=== PATIENT | male | born 1935 | race Caucasian/White ===

== ENCOUNTER 2018-02-08 12:42 | Emergency (ER) | payer OTHER ==
--- OUTSIDE RECORDS SUMMARY | 2018-02-08 12:45 | XMS REPORT | Clinical Summary ---
:1935 Author Organization [facility] Address [address] [place] [address] Care Team Providers Name Role Phone Wily Pelaez MD Primary Care Provider Allergies No Known Allergies Medications Medication Sig Dispensed Refills Start Date End Date Status irbesartan (AVAPRO) Take 150 mg by 0 Active 150 MG tablet mouth. tamsulosin (FLOMAX) Take 0.4 mg by 0 Active 0.4 mg mouth nightly. capsule,extended release 24hr temazepam (RESTORIL) Take 15 mg by 0 11/08/2014 Active 15 mg capsule mouth nightly as needed. triamterene-hydrochlo Take 1 tablet by 0 Active rothiazid mouth every (MAXZIDE-25) 37.5-25 other day. mg per tablet METOPROLOL SUCCINATE Take 100 mg by 0 Active ORAL mouth daily. levothyroxine Take 88 mcg by 0 Active (SYNTHROID, mouth every LEVOTHROID) 50 MCG morning. tablet psyllium (METAMUCIL) Take 1 packet by 0 Active 3.4 gram packet mouth daily. docusate sodium Take 100 mg by 0 Active (COLACE) 100 MG mouth daily as capsule needed. polyethylene glycol Take 17 g by 0 Active (MIRALAX) 17 gram mouth daily. packet amIODarone (PACERONE) Take 200 mg by 0 Active 200 MG tablet mouth daily. dabigatran etexilate Take 150 mg by 0 Active (PRADAXA) 150 mg mouth 2 (two) capsu times a day. traMADol (ULTRAM) 50 Take 1 tablet 30 tablet 0 04/18/2016 03/28/2017 mg tablet (50 mg total) by mouth every 6 (six) hours as needed for moderate pain for up to 30 doses. Active Problems Not on file Encounters Date Type Specialty Care Team Description 02/01/2018 Anesthesia Event Procedural Emelia Morris Cardiology Juliana, FIXED ROUTE OPERATOR 02/01/2018 Surgery Procedural Theresa Morrison Jr., EP CARDIOVERSION Cardiology [20047 (CPT)] 02/01/2018 Hospital Encounter Procedural Theresa Morrison Jr., Atrial fibrillation, Cardiology unspecified type (HCC) after 02/07/2017 Social History Tobacco Use Types Packs/Day Years Used Date Never Smoker Smokeless Tobacco: Never Used Alcohol Use Drinks/Week oz/Week Comments Yes social Sex Assigned at Date Recorded Not on file Job Start Date Occupation Industry Not on file Not on file Not on file Travel History Travel Start Travel End No recent travel history available. Last Filed Vital Signs Vital Sign Reading Time Taken Blood Pressure 176/111 02/01/2018 8:35 AM NON PROFIT FINANCIAL CONTROLLER Pulse 85 02/01/2018 8:35 AM NON PROFIT FINANCIAL CONTROLLER Temperature 36.5 C (97.7 F) 02/01/2018 8:04 AM NON PROFIT FINANCIAL CONTROLLER Respiratory Rate 18 02/01/2018 8:35 AM NON PROFIT FINANCIAL CONTROLLER Oxygen Saturation 99% 02/01/2018 8:35 AM NON PROFIT FINANCIAL CONTROLLER Inhaled Oxygen Concentration - - Weight 97.2 kg (214 lb 3.2 oz) 02/01/2018 6:26 AM NON PROFIT FINANCIAL CONTROLLER Height 185.4 cm (6' 1") 02/01/2018 6:26 AM NON PROFIT FINANCIAL CONTROLLER Body Mass Index 28.26 02/01/2018 6:26 AM NON PROFIT FINANCIAL CONTROLLER Plan of Treatment Not on file Implants Implanted Type Area Lieutenant Shift Supervisor Device Shelf Model / Identifier Expiration Serial / Date Lot Pacemaker Assurity Dual Rate Rf - [id number] - [id number] Cardiac N/A: [employer] 09/22/2017 [id number] / Implanted: Qty: 1 on 04/18/2016 by Theresa Morrison Jr., MD Pacemaker N/A INC [id number] / Generators [id number] Envelope Pcemkr Antbactl Fully Resorb Aigisrxr - [id number] Cardiac Pacing N/A: [employer] [id number] / Implanted: Qty: 1 on 04/18/2016 by Theresa Morrison Jr., MD Leads or N/A / Electrodes or Accessories Pacemaker R Hip Replacement Procedures Procedure Name Priority Date/Time Associated Diagnosis Comments ECG PRE/POST OP Routine 02/01/2018 6:06 AM Results for this NON PROFIT FINANCIAL CONTROLLER procedure are in the results section. after 02/07/2017 Results ECG Pre/Post Op (02/01/2018 6:06 AM NON PROFIT FINANCIAL CONTROLLER) Ventricular rate 78 [facility] Atrial rate 75 [facility] QRSD interval 158 [facility] QT interval 456 [facility] QTC interval 519 [facility] MUSE QRS axis 1 -72 [facility] T wave axis 102 [facility] EKG impression Ventricular-paced rhythm-Abnormal ECG-In [facility] MUSE automated comparison with ECG of -MAR-2016 06:43,-Electronic ventricular pacemaker has replaced Electronic atrial pacemaker- Narrative Performed At Performing Organization Address City/State/Zipcode Phone Number [facility] [address] [place] [address] after 02/07/2017 Insurance Payer Benefit Plan / Group Subscriber ID Type Phone Address HUMANA MEDICARE HUMANA MEDICARE PPO/PFFS/[facility] xxxxxxxxx PPO Advance Directives Patient has advance care planning documents on file. For more information, please contact:Perry [id number] [place] [address]
[2018-02-08] MEDS ORDERED: NA CHLORIDE 0.9% 1,000 ML ONE (13:36)
[2018-02-08] MEDS ORDERED: PANTOPRAZOLE 40 MG INJ ONE (13:47)
[2018-02-08 13:56] LABS: Absolute Lymphocytes (CBC) 0.7 K/uL (0.7-4.9); Absolute Monocytes 0.4 K/uL (0.1-1.3); Absolute Neutrophil 3.7 K/uL (1.8-8.0); Basophils % 0.9 % (0-1.3); Eosinophils % 1.1 % (0-4.4); Hematocrit 42.6 % (39.6-49.0); Lymphocytes % 14.7 % (15.3-44.8); MCH 35.2 pg (27.0-35.0); MCV 101.1 fL (80-100); MPV 8.3 fL (7.6-11.3); RBC Red Blood Cell Count 4.21 M/uL (4.33-5.43)
[2018-02-08 13:57] LABS: Protime INR 1.56
[2018-02-08 14:20] LABS: ALT/SGPT 30 U/L (12-78); AST/SGOT 27 U/L (15-37); Albumin 3.8 g/dL (3.4-5.0); Alkaline Phosphatase 88 U/L (45-117); BUN Blood Urea Nitrogen 12 mg/dL (7-18); Bicarbonate 28 mmol/L (21-32); Bilirubin Direct 0.6 mg/dL (0-0.2); Bilirubin Total 1.4 mg/dL (0.2-1.0); Glucose Level 94 mg/dL (74-106); Lipase 199 U/L (73-393); Magnesium 2.2 mg/dL (1.8-2.4); NT PRO-BNP 4299 pg/mL (<450); Potassium 3.2 mmol/L (3.5-5.1); Protein, Total 7.2 g/dL (6.4-8.2); Sodium Level 134 mmol/L (136-145); Troponin (Emerg Dept Use Only) < 0.02 ng/mL (0.0-0.045)
--- NOTE | 2018-02-08 14:43 | EDPHYS ---
Physician Documentation [facility] Name: Ed Delgado Age: 82 yrs Sex: Male : 1935 Arrival Date: 02/08/2018 Time: 12:44 Bed 15 Private MD: ED Physician Adair Holcomb HPI: 02/08 13:31 This 82 yrs old Male presents to ER via Wheelchair with complaints of [facility] INDIGESTION. 13:31 The patient or guardian reports chest pain that is located primarily in the anterior geovanna chest wall. Onset: 1 week(s) ago. The patient presents with diff swallowing solids. Onset: The symptoms/episode began/occurred 5 day(s) ago. The pain does not radiate. Associated signs and symptoms: Pertinent positives: dysphagia, solids. Modifying factors: The symptoms are alleviated by nothing, the symptoms are aggravated by nothing. Historical: - Allergies: 14:41 No Known Allergies; bp - Home Meds: 14:41 triamterene-hydrochlorothiazid 37.5-25 mg Oral tab 1 tab once daily [Active]; bp metoprolol succinate 100 mg oral Tb24 1 tab once daily [Active]; amiodarone 200 mg Oral tab 1 tab once daily [Active]; Pradaxa 150 mg oral cap 1 cap 2 times per day [Active]; Avapro 300 mg Oral tab 1 tab once daily [Active]; clonidine HCl 0.1 mg Oral tab 1 tab once daily [Active]; tamsulosin 0.4 mg oral cp24 1 cap once daily [Active]; levothyroxine 88 mcg tab 1 tab once daily [Active]; - PMHx: 14:41 Atrial Fib; Hypertension; bp - Immunization history:: Adult Immunizations up to date. - Social history:: Smoking status: Patient/guardian denies using tobacco. - Ebola Screening: : Patient negative for fever greater than or equal to 101.5 degrees Fahrenheit, and additional compatible Ebola Virus Disease symptoms Patient denies exposure to infectious person Patient denies travel to an Ebola-affected area in the 21 days before illness onset No symptoms or risks identified at this time. ROS: 13:31 Constitutional: Negative for fever, chills, and weight loss, Eyes: Negative for injury, geovanna pain, redness, and discharge, ENT: Negative for injury, pain, and discharge, Neck: Negative for injury, pain, and swelling, Cardiovascular: Negative for chest pain, palpitations, and edema, Respiratory: Negative for shortness of breath, cough, wheezing, and pleuritic chest pain, Back: Negative for injury and pain, : Negative for injury, bleeding, discharge, and swelling, MS/Extremity: Negative for injury and deformity, Skin: Negative for injury, rash, and discoloration, Neuro: Negative for headache, weakness, numbness, tingling, and seizure. 13:31 Abdomen/GI: Negative for abdominal pain. Exam: 13:31 Constitutional: This is a well developed, well nourished patient who is awake, alert, geovanna and in no acute distress. Head/Face: Normocephalic, atraumatic. Eyes: Pupils equal round and reactive to light, extra-ocular motions intact. Lids and lashes normal. Conjunctiva and sclera are non-icteric and not injected. Cornea within normal limits. Periorbital areas with no swelling, redness, or edema. ENT: Nares patent. No nasal discharge, no septal abnormalities noted. Tympanic membranes are normal and external auditory canals are clear. Oropharynx with no redness, swelling, or masses, exudates, or evidence of obstruction, uvula midline. Mucous membranes moist. Neck: Trachea midline, no thyromegaly or masses palpated, and no cervical lymphadenopathy. Supple, full range of motion without nuchal rigidity, or vertebral point tenderness. No Meningismus. Chest/axilla: Normal chest wall appearance and motion. Nontender with no deformity. No lesions are appreciated. Cardiovascular: Regular rate and rhythm with a normal S1 and S2. No gallops, murmurs, or rubs. Normal PMI, no JVD. No pulse deficits. Respiratory: Lungs have equal breath sounds bilaterally, clear to auscultation and percussion. No rales, rhonchi or wheezes noted. No increased work of breathing, no retractions or nasal flaring. Abdomen/GI: Soft, non-tender, with normal bowel sounds. No distension or tympany. No guarding or rebound. No evidence of tenderness throughout. Back: No spinal tenderness. No costovertebral tenderness. Full range of motion. Male : Normal genitalia with no discharge or lesions. Skin: Warm, dry with normal turgor. Normal color with no rashes, no lesions, and no evidence of cellulitis. MS/ Extremity: Pulses equal, no cyanosis. Neurovascular intact. Full, normal range of motion. Neuro: Awake and alert, GCS 15, oriented to person, place, time, and situation. Cranial nerves II-XII grossly intact. Motor strength 5/5 in all extremities. Sensory grossly intact. Cerebellar exam normal. Normal gait. Psych: Awake, alert, with orientation to person, place and time. Behavior, mood, and affect are within normal limits. Vital Signs: 13:05 BP 160 / 123; Pulse 76; Resp 18; Temp 97; Pulse Ox 99% ; Weight 95.25 kg; Height 6 ft. bp 1 in. (185.42 cm); 14:00 BP 179 / 112; Pulse 69; Resp 14; Pulse Ox 100% ; bp 15:00 BP 178 / 89; Pulse 70; Resp 16; Pulse Ox 99% ; bp 13:05 Body Mass Index 27.71 (95.25 kg, 185.42 cm) bp MDM: 12:47 Patient medically screened. [facility] 13:36 Data reviewed: vital signs, nurses notes, lab test result(s), EKG, radiologic studies, [facility] plain films. 02/08 13:16 Order name: Basic Metabolic Panel; Complete Time: 14:37 [facility] 02/08 13:16 Order name: CBC with Diff; Complete Time: 14:31 [facility] 02/08 13:16 Order name: LFT's; Complete Time: 14:37 [facility] 02/08 13:16 Order name: Magnesium; Complete Time: 14:37 [facility] 02/08 13:16 Order name: NT PRO-BNP; Complete Time: 14:37 [facility] 02/08 13:16 Order name: PT-INR; Complete Time: 14:31 [facility] 02/08 13:16 Order name: Troponin (emerg Dept Use Only); Complete Time: 14:37 [facility] 02/08 13:16 Order name: XRAY Chest (1 view) [facility] 02/08 13:16 Order name: Lipase; Complete Time: 14:37 [facility] 02/08 13:16 Order name: Urine Culture [facility] 02/08 13:16 Order name: TSH; Complete Time: 14:37 [facility] 02/08 13:38 Order name: Esophagram Only EDMN 02/08 14:23 Order name: T4 Free; Complete Time: 14:37 EDMS 02/08 13:16 Order name: EKG; Complete Time: 13:21 [facility] 02/08 13:16 Order name: Cardiac monitoring; Complete Time: 13:17 [facility] 02/08 13:16 Order name: EKG - Nurse/Tech; Complete Time: 13:48 [facility] 02/08 13:16 Order name: IV Saline Lock; Complete Time: 13:48 [facility] 02/08 13:16 Order name: Labs collected and sent; Complete Time: 13:48 [facility] 02/08 13:16 Order name: O2 Per Protocol; Complete Time: 13:17 [facility] 02/08 13:16 Order name: O2 Sat Monitoring; Complete Time: 13:17 [facility] 02/08 13:16 Order name: Urine Dipstick-Ancillary (obtain specimen); Complete Time: 13:53 [facility] 02/08 14:32 Order name: PO challenge: po juice; Complete Time: 14:43 [facility] 02/08 15:36 Order name: EKG Electrocardiogram EDMS Administered Medications: 13:47 Drug: NS 0.9% 1000 ml Route: IV; Rate: 125 ml/hr; Site: right antecubital; hj 15:40 Follow up: IV Status: Completed infusion; IV Intake: 250ml bp 13:47 Drug: ProTONIX 40 mg Route: IVP; Site: right antecubital; hj 14:59 Follow up: Response: No adverse reaction bp 15:00 Drug: Potassium Effervescent Tablet 25 mEq Route: PO; bp 15:40 Follow up: Response: No adverse reaction bp 15:10 Drug: Norvasc 10 mg Route: PO; bp 15:40 Follow up: Response: No adverse reaction bp Disposition: 02/08/18 14:42 Discharged to Home. Impression: Dysphagia - esophogeal spasms, Atrial fibrillation and flutter, Hypokalemia, Essential (primary) hypertension. - Condition is Fair. - Discharge Instructions: Atrial Fibrillation, Potassium Content of Foods, Dysphagia, Hypertension, Hypertension, [id number], How to Take Your Blood Pressure, [id number]-[id number], Atrial Fibrillation, [id number], Hypokalemia, Managing Your Hypertension. - Prescriptions for Protonix 40 mg Oral Tablet - take 1 tablet by ORAL route once daily; 30 tablet. Xanax 0.25 mg Oral Tablet - take 1 tablet by ORAL route every 12 hours As needed; 20 tablet. Norvasc 5 mg Oral Tablet - take 1 tablet by ORAL route once daily; 20 tablet. - Medication Reconciliation Form, Thank You Letter, Antibiotic Education, Prescription Opioid Use form. - Follow up: Private Physician; When: 2 - 3 days; Reason: Recheck today's complaints, Continuance of care, Re-evaluation by your physician. Follow up: Karel Bishop MD; When: Tomorrow; Reason: Recheck today's complaints, Continuance of care, Re-evaluation by your physician. Follow up: Andrew Agudelo MD; When: 2 - 3 days; Reason: Recheck today's complaints, Continuance of care, Re-evaluation by your physician. - Problem is new. - Symptoms have improved. Signatures: Dispatcher [employer] EDMS Adair Holcomb MD MD cha Joaquin, Henry, CLEMENTINE RN Stoney Youngblood RN RN bp Corrections: (The following items were deleted from the chart) 15:41 14:42 02/08/2018 14:42 Discharged to Home. Impression: Dysphagia - esophogeal spasms; bp Atrial fibrillation and flutter; Hypokalemia; Essential (primary) hypertension. Condition is Fair. Forms are Medication Reconciliation Form, Thank You Letter, Antibiotic Education, Prescription Opioid Use. Follow up: Private Physician; When: 2 - 3 days; Reason: Recheck today's complaints, Continuance of care, Re-evaluation by your physician. Follow up: Karel Bishop; When: Tomorrow; Reason: Recheck today's complaints, Continuance of care, Re-evaluation by your physician. Follow up: Andrew Agudelo; When: 2 - 3 days; Reason: Recheck today's complaints, Continuance of care, Re-evaluation by your physician. Problem is new. Symptoms have improved. geovanna
--- NOTE | 2018-02-08 14:43 | ER ---
Nurse's Notes [facility] Name: Ed Delgado Age: 82 yrs Sex: Male : 1935 Arrival Date: 02/08/2018 Time: 12:44 Bed 15 Private MD: Diagnosis: Dysphagia-esophogeal spasms;Atrial fibrillation and flutter;Hypokalemia;Essential (primary) hypertension Presentation: 02/08 12:48 Presenting complaint: Patient states: INDIGESTION FOR "AWHILE". Transition of care: bp patient was not received from another setting of care. Onset of symptoms is unknown. Risk Assessment: Do you want to hurt yourself or someone else? Patient reports no desire to harm self or others. Initial Sepsis Screen: Does the patient meet any 2 criteria? No. Patient's initial sepsis screen is negative. Does the patient have a suspected source of infection? No. Patient's initial sepsis screen is negative. Care prior to arrival: None. 12:48 Method Of Arrival: Wheelchair bp 12:48 Acuity: TAYLOR 4 bp Triage Assessment: 12:48 General: Appears in no apparent distress. comfortable, Behavior is calm, cooperative, bp appropriate for age. Pain: Denies pain. EENT: No deficits noted. Neuro: Level of Consciousness is awake, alert, obeys commands, Oriented to person, place, time, situation, Appropriate for age. Cardiovascular: Rhythm is sinus rhythm. Respiratory: Airway is patent. GI: Reports. : No signs and/or symptoms were reported regarding the genitourinary system. Historical: - Allergies: 14:41 No Known Allergies; bp - Home Meds: 14:41 triamterene-hydrochlorothiazid 37.5-25 mg Oral tab 1 tab once daily [Active]; bp metoprolol succinate 100 mg oral Tb24 1 tab once daily [Active]; amiodarone 200 mg Oral tab 1 tab once daily [Active]; Pradaxa 150 mg oral cap 1 cap 2 times per day [Active]; Avapro 300 mg Oral tab 1 tab once daily [Active]; clonidine HCl 0.1 mg Oral tab 1 tab once daily [Active]; tamsulosin 0.4 mg oral cp24 1 cap once daily [Active]; levothyroxine 88 mcg tab 1 tab once daily [Active]; - PMHx: 14:41 Atrial Fib; Hypertension; bp - Immunization history:: Adult Immunizations up to date. - Social history:: Smoking status: Patient/guardian denies using tobacco. - Ebola Screening: : Patient negative for fever greater than or equal to 101.5 degrees Fahrenheit, and additional compatible Ebola Virus Disease symptoms Patient denies exposure to infectious person Patient denies travel to an Ebola-affected area in the 21 days before illness onset No symptoms or risks identified at this time. Screenin:00 Abuse screen: Denies threats or abuse. Denies injuries from another. Nutritional bp screening: No deficits noted. Tuberculosis screening: No symptoms or risk factors identified. Fall Risk None identified. Assessment: 13:00 General: Appears in no apparent distress. comfortable, Behavior is calm, cooperative, bp appropriate for age. Pain: Complains of pain in ESOPHAGEAL. Neuro: Level of Consciousness is awake, alert, obeys commands, Oriented to person, place, time, situation, Appropriate for age. Cardiovascular: Rhythm is regular. Respiratory: Airway is patent Respiratory effort is even, unlabored, Respiratory pattern is regular, symmetrical. GI: No signs and/or symptoms were reported involving the gastrointestinal system. : No signs and/or symptoms were reported regarding the genitourinary system. EENT: No deficits noted. Derm: No deficits noted. Musculoskeletal: Circulation, motion, and sensation intact. Range of motion: intact in all extremities. 14:00 Reassessment: PT RETURNED FROM RAD, ALL CURRENT ORDERS COMPLETED. bp 15:34 Reassessment: PT D/C HOME WITH AERONAUTICAL DRAFTER, DX WITH AFIB, DYSPHAGIA AND HYPOKALEMIA. bp Vital Signs: 13:05 BP 160 / 123; Pulse 76; Resp 18; Temp 97; Pulse Ox 99% ; Weight 95.25 kg; Height 6 ft. bp 1 in. (185.42 cm); 14:00 BP 179 / 112; Pulse 69; Resp 14; Pulse Ox 100% ; bp 15:00 BP 178 / 89; Pulse 70; Resp 16; Pulse Ox 99% ; bp 13:05 Body Mass Index 27.71 (95.25 kg, 185.42 cm) bp ED Course: 12:44 Patient arrived in ED. bp 12:44 Stoney Eugene RN is Primary Nurse. bp 12:47 Adair Holcomb MD is Attending Physician. geovanna 12:49 Triage completed. bp 12:59 Splint/sling/ice applied as appropriate. Arm band placed on. bp 13:00 EKG done, by personnel and payroll technician. reviewed by Adair Holcomb MD times two. at1 13:51 X-ray completed. Portable x-ray completed in exam room. Patient tolerated procedure ls3 well. 13:53 Initial lab(s) drawn, by nv, sent to lab. Urine collected: clean catch specimen, clear. 5 Inserted saline lock: 20 gauge in right antecubital area, using aseptic technique. Blood collected. 13:53 TSH Sent. 5 13:53 Urine Culture Sent. 5 13:53 Lipase Sent. 5 13:54 Basic Metabolic Panel Sent. [facility] 13:54 CBC with Diff Sent. [facility] 13:54 LFT's Sent. [facility] 13:54 Magnesium Sent. [facility] 13:54 NT PRO-BNP Sent. [facility] 13:54 PT-INR Sent. [facility] 13:54 Troponin (emerg Dept Use Only) Sent. 5 13:55 Patient moved to radiology via wheelchair. az 14:00 Patient has correct armband on for positive identification. Placed in gown. Bed in low bp position. Call light in reach. Side rails up X2. Adult w/ patient. 14:04 XRAY Chest (1 view) In Process Unspecified. EDMS 14:22 X-ray completed. Patient tolerated procedure well. Patient moved back from radiology. az 14:23 Esophagram Only In Process Unspecified. EDMS 14:39 Karel Bishop MD is Referral Physician. geovanna 14:39 Andrew Agudelo MD is Referral Physician. geovanna 15:38 No provider procedures requiring assistance completed. IV discontinued, intact, bp bleeding controlled, No redness/swelling at site. Pressure dressing applied. Administered Medications: 13:47 Drug: NS 0.9% 1000 ml Route: IV; Rate: 125 ml/hr; Site: right antecubital; hj 15:40 Follow up: IV Status: Completed infusion; IV Intake: 250ml bp 13:47 Drug: ProTONIX 40 mg Route: IVP; Site: right antecubital; hj 14:59 Follow up: Response: No adverse reaction bp 15:00 Drug: Potassium Effervescent Tablet 25 mEq Route: PO; bp 15:40 Follow up: Response: No adverse reaction bp 15:10 Drug: Norvasc 10 mg Route: PO; bp 15:40 Follow up: Response: No adverse reaction bp Intake: 15:40 IV: 250ml; Total: 250ml. bp Outcome: 14:42 Discharge ordered by . geovanna 15:38 Discharged to home ambulatory, with friend. bp 15:38 Condition: stable 15:38 Discharge instructions given to patient, Instructed on discharge instructions, follow up and referral plans. medication usage, Demonstrated understanding of instructions, follow-up care, medications, Prescriptions given X 3. 15:41 Patient left the ED. bp Signatures: Dispatcher [employer] EDMS Adair Holcomb, Leda Pham MD, cha, capacity manager EKG Tat1 Jamel Bob RN RN Lyubov Che [facility] Stoney Eugene RN RN Radha Sharpe Lynzie ls3
[2018-02-08] MEDS ORDERED: AMLODIPINE 5 MG TAB ONE ×2 (15:10→15:15)
[2018-02-08] MEDS ORDERED: POTASSIUM 25 MEQ EFFERV TAB ONE (15:10)
--- NOTE | 2018-02-08 15:15 | RAD REPORT ---
EXAM DESCRIPTION: RAD - Chest Single View - 02/08/2018 2:02 pm CLINICAL HISTORY: Cough, chest pain COMPARISON: April 2014 TECHNIQUE: AP portable chest image was obtained 1348 hours . FINDINGS: No peripheral mass, consolidation or failure finding. Scattered fibrotic pattern is presen t. Interstitial markings are fractionally increased from 2015. This could be progressive fibrosis or a minimal interstitial edema or infiltrate. Pacemaker is in place. No pulmonary edema findings. Heart size is upper normal. Pulmonary vasculature within normal limits. No measurable pleural effusion and no pneumothorax. No acute bony abnormality seen. No acute aortic findings suspected. IMPRESSION: No mass, consolidation or significant failure/ volume overload. Interstitial markings are increased slightly from 2015. This could be progressive fibrosis or a mild interstitial edema or infiltrate.
--- NOTE | 2018-02-08 15:31 | EKG ---
Test Date: 2018-02-08 Test Time: 12:47:57 Last Remodeler Repairer: GERALD MEASUREMENT RESULTS: Intervals: Rate: 70 VA: QRSD: 148 QT: 454 QTc: 490 [place]: P: VA: QRS: -77 T: 101 INTERPRETIVE STATEMENTS: Ventricular-paced rhythm Abnormal ECG Compared to ECG 05/16/2014 17:23:41 Atrial fibrillation no longer present Electronically Signed On 02-08-18 15:30:29 DIMENSIONAL INSPECTOR by Andrew Agudelo
[2018-02-08 15:59] VITALS: TEMP 97
[2018-02-08 16:01] VITALS: BP 178/89; O2SAT 99
--- NOTE | 2018-02-08 17:33 | RAD REPORT ---
EXAM DESCRIPTION: RAD - Esophagram Only - 02/08/2018 2:48 pm CLINICAL HISTORY: Difficulty swallowing, food stuck in esophagus COMPARISON: None. FINDINGS: There were 7 cine loop acquisitions obtained. Fluoro time was 1.0 minutes. Patient showed normal bolus formation and normal initiation of swallowing. Patient has substantially diminished primary peristalsis with pronounced tertiary contractions throughout the thoracic esophagu s. This resulted in to and fro motion of the contrast column within the thoracic esophagus. Clearing of contrast was delayed due to the tertiary contractions. No intrinsic stricture or mass lesion. No diffuse esophageal spasm. No reflux was observed. No hiatal hernia. No difficulty in transit across the GE junction. IMPRESSION: Significant decrease in primary peristalsis with pronounced tertiary contractions. No intrinsic stricture or mass. No reflux, hiatal hernia or delay in transit across the GE junction.
--- NOTE | 2018-02-09 06:03 | EKG ---
Test Date: 2018-02-08 Test Time: 12:48:23 Field Placement Director: GERALD MEASUREMENT RESULTS: Intervals: Rate: 77 [place]: QRSD: 136 QT: 438 QTc: 495 [place]: P: [place]: QRS: 49 T: -68 INTERPRETIVE STATEMENTS: Atrial fibrillation with frequent ventricular-paced complexes Right bundle branch block non specific T abnormality Abnormal ECG Compared to ECG 02/08/2018 12:47:57 Right bundle-branch block now present T-wave abnormality now present The previous ECG had no conducted complexes Electronically Signed On 02-09-18 06:02:56 SWIMMER by Andrew Agudelo
== END 2018-02-08 15:41 | disposition home or self-care (01) ==
LOC: ER 12:42
DX: K22.4 Dyskinesia of esophagus (principal); E87.6 Hypokalemia; I48.91 Unspecified atrial fibrillation; I48.92 Unspecified atrial flutter; I10 Essential (primary) hypertension
CPT/HCPCS: 36415; 71045; 74220; 80048; 80076; 83690; 83735; 83880; 84439; 84443; 84484; 85025; 85610; 87086; 87088; 93005 ×2; 96361; 96374; 99284; C9113; J7030

== ENCOUNTER 2018-09-08 07:13 | Day surgery (SDC) | payer OTHER ==
[2018-09-06 15:55] LABS: Basophils % 1.4 % (0-1.3); Lymphocytes % 27.9 % (15.3-44.8); MPV 8.6 fL (7.6-11.3); Monocytes % 8.7 % (3.3-12.3); RBC Red Blood Cell Count 4.42 M/uL (4.33-5.43)
--- NOTE | 2018-09-06 16:21 | RAD REPORT ---
EXAM DESCRIPTION: RAD - Chest Pa And Lat (2 Views) - 09/06/2018 3:56 pm CLINICAL HISTORY: Preop chest, hernia repair COMPARISON: March 2018 TECHNIQUE: PA and lateral views of the chest were obtained. 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 The interstitial pattern matches comparison. No supe rimposed failure, infiltrate or mass. Pacemaker is in place. Heart size is normal and central vasculature is within normal limits. No pleural effusion or pneu mothorax seen. No acute bony finding noted. No aortic abnormality. IMPRESSION: Chronic interstitial pattern similar to March 2018. No acute finding.
[2018-09-06 16:24] LABS: Potassium 4.2 mmol/L (3.5-5.1)
--- OUTSIDE RECORDS SUMMARY | 2018-09-08 07:16 | XMS REPORT | Clinical Summary ---
:1935 Author Organization [facility] Address [address] [place] [address] Care Team Providers Name Role Phone Wily Pelaez MD Primary Care Provider Allergies No Known Allergies Medications Medication Sig Dispensed Refills Start Date End Date Status irbesartan (AVAPRO) Take 300 mg by 0 Active 150 MG tablet mouth daily. tamsulosin (FLOMAX) Take 0.4 mg by 0 Active 0.4 mg mouth nightly. capsule,extended release 24hr triamterene-hydroch Take 1 tablet 0 Active lorothiazid by mouth daily. (MAXZIDE-25) 37.5-25 mg per tablet psyllium Take 1 packet 0 Active (METAMUCIL) 3.4 by mouth daily. gram packet docusate sodium Take 100 mg by 0 Active (COLACE) 100 MG mouth daily as capsule needed. polyethylene glycol Take 17 g by 0 Active (MIRALAX) 17 gram mouth daily. packet amIODarone Take 200 mg by 0 Active (PACERONE) 200 MG mouth daily. tablet dabigatran Take 150 mg by 0 Active etexilate (PRADAXA) mouth 2 (two) 150 mg capsu times a day. ranolazine (RANEXA) Take 500 mg by 0 Active 500 MG 12 hr ER mouth 2 (two) tablet times a day. clonIDINE Take 0.1 mg by 0 Active (CATAPRES) 0.1 MG mouth daily. tablet potassium chloride Take 20 mEq by 0 Active (K-DUR) 20 MEQ CR mouth daily. tablet levothyroxine Take 88 mcg by 0 Active (SYNTHROID, mouth every LEVOXYL) 88 mcg morning. tablet ALPRAZolam (XANAX) Take 0.25 mg by 0 Active 0.25 MG tablet mouth daily. QUEtiapine Take 25 mg by 0 Active (SEROquel) 25 MG mouth nightly tablet as needed. dextran Administer 1 15 mL 0 05/08/2018 Active 70-hypromellose drop to both (ARTIFICIAL TEARS) eyes 3 (three) 0.1-0.3 % drops times a day as needed (Eye dryness/irritat ion). colchicine 0.6 mg Take 0.5 30 tablet 0 05/08/2018 Active tablet tablets (0.3 mg 0 total) by mouth 2 (two) times a day. pantoprazole Take 1 tablet 60 tablet 0 05/08/2018 Active (PROTONIX) 40 MG EC (40 mg total) tablet by mouth 2 (two) times a day. temazepam Take 15 mg by 0 11/08/2014 Discontinued (RESTORIL) 15 mg mouth nightly 9 capsule as needed. METOPROLOL Take 100 mg by 0 Discontinued SUCCINATE ORAL mouth daily. 9 levothyroxine Take 88 mcg by 0 Discontinued (SYNTHROID, mouth every 9 LEVOTHROID) 50 MCG morning. tablet metoprolol Take 100 mg by 0 Discontinued succinate XL mouth daily. 9 (TOPROL-XL) 100 mg 24 hr tablet sucralfate Take 1 tablet 120 tablet 0 05/08/2018 (CARAFATE) 1 gram (1 g total) by 9 tablet mouth 4 (four) times a day for 30 days. metoprolol Take 1 tablet 30 tablet 0 05/09/2018 succinate XL (25 mg total) 9 (TOPROL-XL) 25 mg by mouth daily 24 hr tablet for 30 days. Active Problems Problem Noted Date Persistent atrial fibrillation 05/07/2018 Encounters Date Type Specialty Care Team Description 05/07/2018 Anesthesia Event Procedural Gonsales, Cardiology Delisa Enrique MD 05/07/2018 Surgery Procedural Surjit Geller MD EP COMPLETE EP STUDY Cardiology W ABLATION PULMONARY VEIN [63432 (CPT)] 05/07/2018 - Hospital Encounter Cardiology Surjit Geller MD Persistent atrial 05/08/2018 fibrillation ([facility]) 03/05/2018 Hospital Encounter Procedural Valeriy Gimenez PAF (paroxysmal Cardiology MD Paresh atrial fibrillation) ([facility]) 03/05/2018 Surgery Procedural RamiValeriy EP CARDIOVERSION Cardiology MD Paresh [04550 (CPT)] 02/01/2018 Anesthesia Event Procedural Emelia Morris Cardiology RANDAL Andrews 02/01/2018 Surgery Procedural Theresa Morrison Jr., EP CARDIOVERSION Cardiology [65097 (CPT)] 02/01/2018 Hospital Encounter Procedural Theresa Morrison Jr., Atrial fibrillation, Cardiology unspecified type (HCC) after 09/07/2017 Social History Tobacco Use Types Packs/Day Years [...] Vital Sign Reading Time Taken Blood Pressure 120/70 05/08/2018 8:00 AM CDT Pulse 101 05/08/2018 8:00 AM CDT Temperature 36.6 C (97.8 F) 05/08/2018 7:00 AM CDT Respiratory Rate 18 05/08/2018 7:15 AM CDT Oxygen Saturation 99% 05/08/2018 7:15 AM CDT Inhaled Oxygen Concentration - - Weight 87.2 kg (192 lb 4.8 oz) 05/08/2018 6:37 AM CDT Height 185.4 cm (6' 1") 05/07/2018 9:45 PM CDT Body Mass Index 25.37 05/07/2018 9:45 PM CDT Plan of Treatment Not on file Implants Implanted Type Area Percussion Instrument Tuner Device Shelf Model / Identifier Expiration Serial / Date Lot Pacemaker Assurity Dual Rate Rf - [id number] - [id number] Cardiac N/A: [employer] 09/22/2017 [id number] / Implanted: Qty: 1 on 04/18/2016 by Theresa Morrison Jr., MD Pacemaker N/A INC [id number] / Generators [id number] Envelope Pcemkr Antbactl Fully Resorb Aigisrxr - [id number] Cardiac Pacing N/A: [employer] [id number] / Implanted: Qty: 1 on 04/18/2016 by Theresa Morrison Jr., MD Leads or N/A / Electrodes or Accessories System Clsr Sut Meditd 6fr Perclose Proglide - [id number] Surgical N/A: [employer] 08/23/2019 [id number] / Implanted: 05/07/2018 (Quantity not on file) Implants; N/A DEVICES / Expanders; [id number] Extenders; Surgical Wires Pacemaker R Hip Replacement Procedures Procedure Name Priority Date/Time Associated Diagnosis Comments ESTIMATED GFR Routine 05/08/2018 1:14 Results for this AM CDT procedure are in the results section. BASIC METABOLIC Routine 05/08/2018 1:14 Results for this PANEL AM CDT procedure are in the results section. HC COMPLETE BLD Routine 05/08/2018 1:14 Results for this COUNT W/AUTO DIFF AM CDT procedure are in the results section. ECG PRE/POST OP Routine 05/08/2018 1:09 Results for this AM CDT procedure are in the results section. EP COMPLETE EP Routine 05/07/2018 7:00 Persistent atrial Results for this STUDY W ABLATION PM CDT fibrillation (HCC) procedure are in PULMONARY VEIN the results section. ACTIVATED CLOTTING Routine 05/07/2018 3:19 Results for this TIME PM CDT procedure are in the results section. ARTERIAL LINE Routine 05/07/2018 2:54 PM CDT Procedure Note - Marco Hernandez CRNA - 05/07/2018 2:54 PM CDT Arterial line Performed by: Marco Hernandez CRNA Authorized by: Delisa Gonsales MD Patient Location: OR Staff: Anesthesiologist: Delisa Gonsales MD Resident/RANDAL/AA: Marco Hernandez CRNA Performed by: Resident/MOBILE HOME MECHANIC/AA Pre-procedure: patient identified, IV checked, site and side verified, risks and benefits discussed, procedure verified, surgical consent complete, patient position confirmed, monitors and equipment checked and pre-op evaluation complete MSBT: antiseptic used, all elements of maximal sterile barrier technique followed, hand hygiene performed, cap/gown used by other personnel and solutions labeled Indications: Indications: multiple ABGs and hemodynamic monitoring Anesthesia: Anesthesia: General Procedure Details: Arterial Line placement: Placed post induction Line placement site: Radial Line placement side: Right Arterial line gauge: 20 G Number of attempts: 2 Ultrasound guidance used: Yes Post-procedure: Post-procedure: Sterile dressing applied Post procedure circulation, sensation, movement: Normal and unchanged Patient tolerance: Patient tolerated the procedure well with no immediate complications OK AN ELECTIVE ENDOTRACHEAL AIRWAY Routine 05/07/2018 2:54 PM CDT Procedure Note - Delisa Gonsales MD - 05/07/2018 2:54 PM CDT Airway Performed by: Marco Hernandez CRNA Authorized by: Delisa Gonsales MD Location: OR Urgency: Elective Difficult Airway: No Anesthesiologist: Delisa Gonsales MD Resident/MOBILE HOME MECHANIC/AA: Marco Hernandez CRNA Performed by: resident/MOBILE HOME MECHANIC Preoxygenated with 100% O2: Yes C-spine Precautions Maintained Throughout: No Mask Ventilation: Easy mask Final Airway Type: Endotracheal airway Final Endotracheal Airway: ETT Cuffed: Yes Technique Used: Direct laryngoscopy Insertion Site: Oral Blade Type: Lawrence Laryngoscope Blade/Videolaryngoscope Blade Size: 2 ETT Size (mm): 8.0 Cuff at minimum occlusion pressure: Yes Measured from: Lips ETT to Lips (cm): 22 Placement Verified by: CO2 detection, direct visualization and equal breath sounds Laryngoscopic view: Grade I - full view of glottis Rapid Sequence Induction (RSI): No Modified RSI: No Number of Attempts at Approach: 1 Atraumatic; no injury to lips, teeth, or oropharynx. POC PANEL Routine 05/07/2018 9:10 AM Results for this CDT procedure are in the results section. ESTIMATED GFR Routine 05/07/2018 9:10 AM Results for this CDT procedure are in the results section. TYPE AND SCREEN STAT 05/07/2018 8:58 AM Results for this CDT procedure are in the results section. EP CARDIOVERSION Routine 03/05/2018 11:26 AM PAF (paroxysmal Results for this RN PLASTIC SURGERY atrial fibrillation) procedure are in (HCC) the results section. ECG 12-LEAD Routine 03/05/2018 11:11 AM Results for this RN PLASTIC SURGERY procedure are in the results section. ECG PRE/POST OP STAT 03/05/2018 10:11 AM Results for this RN PLASTIC SURGERY procedure are in the results section. EP CARDIOVERSION Routine 02/01/2018 7:58 AM Atrial fibrillation, Results for this RN PLASTIC SURGERY unspecified type procedure are in (HCC) the results section. ECG PRE/POST OP Routine 02/01/2018 6:06 AM Results for this RN PLASTIC SURGERY procedure are in the results section. after 09/07/2017 Results Estimated GFR (05/08/2018 1:14 AM CDT)Only the most recent of2 resultswithin the time period is included. Estimated GFR 53 (A) mL/min/1.73 [facility] Comment: m2 HOSPITAL CatergoryUnitsInterpretation G1 >=90 Normal or high G2 60-89Mildly decreased [id number] to moderately decreased [id number] to severely decreased G4 15-29Severely decreased G5 <15Kidney failure The eGFR was calculated using the Chronic Kidney Disease Epidemiology Collaboration (CKD-EPI) equation. Interpretation is based on recommendations of the National Kidney Foundation-Kidney Disease Outcomes Quality Initiative (NKF-KDOQI) published in 2014. Specimen Plasma specimen Performing Organization Address City/State/Zipcode Phone Number [facility] DEPARTMENT OF PATHOLOGY AND [address] [place] [address] GENOMIC MEDIC[address] [address] CBC with platelet and differential (05/08/2018 1:14 AM CDT) Pathologist [facility] WBC 4.76 4.50 - 11.00 [facility] k/uL [facility] RBC 3.86 (L) 4.40 - 6.00 [facility] m/uL [facility] HGB 13.0 (L) 14.0 - 18.0 [facility] g/dL [facility] HCT 38.7 (L) 41.0 - 51.0 % [facility] MCV 100.3 (H) 82.0 - 100.0 [facility] MCH 33.7 27.0 - 34.0 pg [facility] MCHC 33.6 31.0 - 37.0 [facility] g/dL [facility] RDW - SD 61.2 (H) 37.0 - 55.0 fL [facility] MPV 9.9 8.8 - 13.2 fL [facility] Platelet count 109 (L) 150 - 400 k/uL [facility] Nucleated RBC 0.00 /100 WBC [facility] Neutrophils 79.3 (H) 39.0 - 69.0 % [facility] Lymphocytes 10.7 (L) 25.0 - 45.0 % [facility] Monocytes 8.4 0.0 - 10.0 % [facility] Eosinophils 0.6 0.0 - 5.0 % [facility] Basophils 0.6 0.0 - 1.0 % [facility] Immature granulocytes 0.4Comment: 0.0 - 1.0 % [facility] "Immature [facility] granulocytes" (promyelocytes , myelocytes, metamyelocytes ) Specimen Blood Performing Organization Address City/State/Zipcode Phone Number [facility] DEPARTMENT OF PATHOLOGY AND [address] [place], [place] [id number] [place] [phone] Basic metabolic panel (05/08/2018 1:14 AM CDT) Pathologist [facility] Sodium 136 135 - 148 mEq/L [facility] Potassium 3.9 3.5 - 5.0 mEq/L [facility] Chloride 101 98 - 112 mEq/L [facility] CO2 22 (L) 24 - 31 mEq/L [facility] Anion gap 13@ANIO 7 - 15 mEq/L [facility] BUN 15 8 - 23 mg/dL [facility] Creatinine 1.25 (H) 0.70 - 1.20 mg/dL [facility] Glucose 115 (H) 65 - 99 mg/dL [facility] Calcium 8.4 (L) 8.8 - 10.2 mg/dL [facility] Specimen Plasma specimen Performing Organization Address City/[facility] Phone Number [facility] DEPARTMENT OF PATHOLOGY AND [address] [place] [phone] ECG Pre/Post Op (05/08/2018 1:09 AM CDT)Only the most recent of3 resultswithin the time period is included. Ventricular rate 74 [facility] MUSE Atrial rate 43 [facility] MUSE QRSD interval 116 [facility] MUSE QT interval 422 [facility] QTC interval 468 [facility] MUSE QRS axis 1 -78 [facility] MUSE T wave axis 113 [facility] MUSE EKG impression Electronic ventricular [facility] MUSE pacemaker-In automated comparison with ECG of 05-MAR-2018 11:11,-Vent. rate has increased BY 3 BPM- Specimen Narrative Performed At Performing Organization Address City/State/Zipcode Phone Number [facility] [address] [place] [address] Cv electrophysiology procedure (05/07/2018 7:00 PM CDT) Specimen Impressions Performed At -Chronically isolated right superior vein right inferior vein [facility] -Chronically reconnected left superior vein and left inferior vein at the level of posterior joanna status post successful reisolation -Successful PWI re-isolation -Multiple areas of low voltage seen in the posterior wall, and anterior wall and to the right atrium -Multiple flutters induced, mapped and ablated from: the base of the appendage, fossa ovalis and noncoronary cusp. -CTI line ablation with bidirectional block achieved RECOMMENDATIONS: 1. Monitor on telemetry overnight 2. Bedrest for 4 hours after sheaths removal 3. Restart Pradaxa tonight 4. Continue amiodarone 5- Lasix 20 mg IV when patient in recovery Narrative Performed At DATE OF OPERATION: 05/07/2018 SYN[facility] KOSHER SEALER: Surjit Geller MD PREOPERATIVE DIAGNOSES: -Persistent atrial fibrillation, s/p prior ablation in 2014 -SSS s/p DC PCM ([facility]) -Hypertension -CKD stage II POSTOPERATIVE DIAGNOSES: -Persistent atrial fibrillation, s/p prior ablation in 2014 -Multiple tachycardias induced -SSS s/p DC PCM ([facility]) -Hypertension -CKD stage II PROCEDURES PERFORMED: -Ultrasound guided vascular access -Afib ablation with PVI -Extrapulmonary ablation for PWI -Atrial flutters ablation x4 -3D mapping -Stimulation after drug infusion -Intra cardiac echocardiography (ICE) COMPLICATIONS: None ESTIMATED BLOOD LOSS: <30cc HISTORY OF PRESENT ILLNESS: In brief, this is an 82 years old Male with past medical history as above, with symptomatic persistent atrial fibrillation refractory to anti-arrhythmics (amiodarone) who presents today for atrial fibrillation ablation.He had a prior ablation in 2015 with pulmonary vein isolation and posterior wall isolation performed. PROCEDURE IN DETAIL: Consent was obtained from the patient after a full explanation of the risks and benefits of the procedure. The patient was brought to the electrophysiology lab in the fasting state. The patient was prepared and draped in a sterile fashion. General anesthesia with intratracheal ventilation administered by the anesthesia service was used for the procedure. Esophageal temperature monitoring was performed throughout the case using CIRCA catheter. Patient presented to the EP lab in atrially paced rhythm.Pacemaker was interrogated at the beginning at the end of the case.Sheaths were placed using modified Seldinger technique. Three venous sheaths (8Fr, long 7Fr and long 9Fr sheath) were placed in the right femoral vein using ultrasound guidance without complication.A intracardiac echocardiography catheter (ICE) was inserted via the 9Fr sheath and advanced into the right atrium and the right ventricle. At baseline, there was no pericardial effusion and normal EF. There was no left atrial appendage clot seen. Using SOUND, the CTI, CS os, fossa, LPVs, RPVs were marked. The left atrium was noted to be severely enlarged and measured at 6.0m. The ICE catheter was later used to guide transseptal puncture and monitor for procedure complications. Next, the RFV 8Fr sheath was upgraded to a large curl Agilis sheath, through which a Graphite SoftwareTouch SF catheter, DF curve was advanced to the RA, and a Fast Anatomic Map (FAM) was done for the IVC, RA septum, fossa and SVC. A decapolar diagnostic catheter was then advanced into the coronary sinus.We turned out attention to left sided access. After titrating heparin drip to achieve an ACT > 350 sec, transseptal puncture was performed with Casmalia long needle (requiring RF) using ICE guidance.It was somehow challenging advancing the sheath into the left atrium and a Julian wire was used. Left (18 mmHg) atrial pressure was measured to assess intracardiac filling pressures.There were no complications.Following transseptal puncture, Agilis sheath was advanced into the LA, and the ablator was then exchanged to a DF Pentarray catheter.Patient was cardioverted with 200 J x1 to normal sinus rhythm. A detailed 3D electroanatomical and voltage map was created while in sinus rhythm in the left atrium using CARTO mapping system.The left superior and inferior veins were noted to be connected at the level of posterior joanna.The posterior wall had areas of low voltage and very slow conduction areas zone and tagged.The right pulmonary veins were isolated at baseline.Following this we proceeded with left-sided pulmonary vein re-isolation.During ablation on the posterior wall and the patient went into stable tachycardia that we will call tachycardia 1: This was distal to proximal on the CS, with tachycardia cycle length of 340 ms.Using entrainment techniques and activation mapping this was turned out to be micro-reentry tachycardia from the base of the appendage, and ablation there is slowed the tachycardia and then terminated it.We proceeded next to finishing isolating the left pulmonary veins; In addition, a roofline and a floor line were placed on the posterior wall to reachieve isolation. Additional lesions were needed in the middle to achieve isolation and exit block was obtained with high output pacing.All areas of slow conduction and low voltage were targeted as well.30-40 W for 30 sec and impedance drop of 10-15 ohms was targeted in the anterior sites. Posterior siteshigh power, short duration lesions (40W for 5-6 secs) were used. Exit and entrance block was confirmed at all 4 veins and posterior wall with high output pacing.With Isuprel infusion up to 20mcg/min, no vein reconnection and non-PV trigger was seen.CS burst pacing from 250ms to 200msec during isuprel washout, atrial tachycardia 2 was induced:This was proximal to distal on the CS, with tachycardia cycle length of 300 ms. Based on entrainment maneuvers from CS proximal CS distal, this tachycardia was thought to be right-sided.Sheath was withdrawn into the right atrium, and we attempted to map the tachycardia with Penta array, however flutter was changing into another stable flutterwhich we will call atrial tachycardia 3: This was also proximal to distal on the CS was tachycardia cycle length of 360 ms.Initially we thought this may be CTI dependent therefore CTI line was performed; however when the tachycardia was not affected with CTI line ablation we mapped it with Penta array and a focal early focus was found on the fossa on the right septum and the fossa area and ablation there immediately terminated flutter 3 into flutter 2 which was now the most predominant flutter again.Flutter 2 was mapped extensively and right atrium and left atrium: There was sensory through activation with earliest activation was broad on the right septal area.Ablation there slowed the tachycardia however were not able to terminated.At this time we decided to go retrograde to evaluate the noncoronary cusp.After obtainingright femoral arterial access with ultrasound, the ablation catheter was advanced in a retrograde fashion into the aorta to the noncoronary cusp exactly opposite to the area of early activation on the right septum.Ablation there immediately terminated the tachycardia within few seconds.Additional lesions were placed for consolidation.At this time and because of the procedure was long and the time was late into the day, procedure was ended.CTI was confirmed to be blocked with bidirectional block.Trans-conduction time was 280 ms. At this time case was ended. HV interval was measured at 66msec and GV=[id number]. Post-procedure ICE showed no pericardial effusion.At this time, GA was stopped and patient was extubated; No immediate complications. Protamine was given at the end of the procedure.Sheaths were pulled in the lab and patient was transferred to the PACU in a stable condition. Performing Organization Address [facility] Phone Number [facility] [address] [place] [phone] Activated clotting time (05/07/2018 3:19 PM CDT) Pathologist [facility] Activated clotting 468 (H) 96 - 152 sec [facility] Comment: HOSPITAL Meter ID: [id number] Site Superintendent: Dru Hercules Specimen Performing Organization Address [facility] Phone Number [facility] DEPARTMENT OF PATHOLOGY AND [address] [place] [phone] POC panel (05/07/2018 9:10 AM CDT) Pathologist [facility] POC sodium 138 135 - 148 [facility] mmol/L [facility] POC potassium 4.2 3.5 - 5.0 [facility] mmol/L [facility] POC chloride 104 99 - 109 [facility] mmol/L [facility] POC CO2 25 24 - 31 mmol/L [facility] POC glucose 85 65 - 99 mg/dL [facility] POC BUN 19 8 - 24 mg/dL [facility] POC creatinine 1.2 0.7 - 1.2 [facility] mg/dl [facility] POC hematocrit 47 41 - 51 % [facility] POC anion gap 13 8 - 20 mmol/L [facility] Comment: HOSPITAL Meter ID: [id number] Site Superintendent: Ramone Kaiser Specimen Performing Organization Address [facility] Phone Number [facility] DEPARTMENT OF PATHOLOGY AND [address] [place] [address] Type and screen (05/07/2018 8:58 AM CDT) ABO grouping O [facility] Rh type POS [facility] Antibody screen (gel) NEG [facility] Specimen Blood Performing Organization Address [facility] Phone Number [facility] DEPARTMENT OF PATHOLOGY AND [address] [place] [phone] GENOMIC MEDICINE [facility] [address] [place] [address] Cv electrophysiology procedure (03/05/2018 11:26 AM RN PLASTIC SURGERY) Specimen Narrative Performed At KOSHER SEALER: YARELY Gimenez MD COMPLICATIONS: None. ESTIMATED BLOOD LOSS: Zero. SPECIMEN REMOVED: None. PROCEDURE PERFORMED: Electrical cardioversion. PREOPERATIVE DIAGNOSIS: Persistent atrial fibrillation. POSTOPERATIVE DIAGNOSIS: Persistent atrial fibrillation. HISTORY OF PRESENT ILLNESS: The patient is an 82-year-old gentleman with a history of persistent atrial fibrillation, status post remote pulmonary vein ablation who has had recurrent atrial arrhythmias that failed to chemically convert on antiarrhythmic drug therapy and is now referred for electrical cardioversion.The patient has been on consistent anticoagulation with Pradaxa.He has a dual chamber pacemaker in place. PROCEDURE IN DETAIL: The patient was brought to the procedure room in a fasting state. Informed consent was obtained.The patient was given etomidate 7 mg.Transient deep sedation was induced.A single synchronized 360 joule biphasic shock was delivered with successful conversion to sinus rhythm. CONCLUSION: Successful electrocardioversion of atrial fibrillation to sinus rhythm. RECOMMENDATIONS: The patient will complete the appropriate postprocedure wound care and activity restriction. Performing Organization Address [facility] Phone Number [facility] [address] [place] [address] ECG 12 lead (03/05/2018 11:11 AM RN PLASTIC SURGERY) Ventricular rate 71 [facility] MUSE Atrial rate 71 [facility] MUSE OK interval 228 [facility] MUSE QRSD interval 154 [facility] MUSE QT interval 448 [facility] MUSE QTC interval 486 [facility] MUSE P axis 1 87 [facility] MUSE QRS axis 1 -75 [facility] MUSE T wave axis 104 [facility] MUSE EKG impression AV dual-paced rhythm-In [facility] MUSE automated comparison with ECG of 05-MAR-2018 11:10,-No significant change was found-- Specimen Narrative Performed At Performing Organization Address [facility] Phone Number [facility] MUSE [address] [place] [address] Cv electrophysiology procedure (02/01/2018 7:58 AM RN PLASTIC SURGERY) Specimen Narrative Performed At Theresa Raza Jr., MD Physician Electrophysiology Brief Op Note Signed Date of Service:02/01/2018 7:38 AM Procedure: EP CARDIOVERSION Case Time: 02/01/2018 7:38 AM Surgeon: Theresa Morrison Jr., MD Signed []Hide copied text []Hover for details Cardioversion Operative Note Ed Delgado,[id number] y.o. male 02/01/2018; [facility] WT CATH AOD PROC 2 Procedure(s): EP CARDIOVERSION Tolerated procedure well Condition: stable Complications:None; patient tolerated the procedure well. Findings: The patient was identified and consent reconfirmed prior to the procedure The baseline rhythm was atrial fibrillation Anesthesia was given When the patient was adequately sedated, synchronized DC CVN wasperformed converting the patient to sinus The patient awoke without sequelae Procedure Details Pre-op Diagnosis: * No pre-op diagnosis entered * Post-Op Diagnosis Codes: * Atrial fibrillation, unspecified type (HCC) [I48.91] Surgeon(s) and Role: * Theresa Morrison Jr., MD - Primary Anesthesia: Anesthesia type not filed in the log. Blood Products Administered:none Estimated Blood Loss: * No values recorded between 02/01/20187:38 AM and 02/01/20187:58 AM * Sheath/IV: Specimens: * No specimens in log * Grafts/Implants: None Conclusions:Successful Cardioversion Recommendations:Continue current meds and consider re-do PVI Theresa Morrison Jr., MD Date: 02/01/2018Time: 7:59 AM Performing Organization Address City/State/Zipcode Phone Number [facility] [address] [place] [address] after 09/07/2017 Insurance Payer Benefit Plan / Subscriber ID Effective Dates Phone Address Type Group HU[employer]NA MEDICARE HUMANA MEDICARE xxxxxxxxx 2012-Present PPO PPO/PFFS/ERS [facility] Advance Directives Patient has advance care planning documents on file. For more information, please contact:Perry [id number] [place] [address]
[2018-09-08] MEDS ORDERED: Ringers Lactate 1,000 ML IV ONE (07:54)
[2018-09-08] MEDS ORDERED: LABETALOL HCL 100 MG/20 ML ONE (08:12)
[2018-09-08] MEDS ORDERED: CEFAZOLIN/SWI 1gm 1 GM/10 ML SYR ONE (08:13)
[2018-09-08] MEDS ORDERED: dexAMETHasone 10 MG/ML VIAL ONE (08:29)
[2018-09-08] MEDS ORDERED: LIDOCAINE 2% MPF 5 ML VIAL ONE (08:29)
[2018-09-08] MEDS ORDERED: PROPOFOL 200 MG/20 ML VIAL IV ONE (08:29)
[2018-09-08] MEDS ORDERED: FENTANYL CITR 100 MCG/2 ML ONE (08:29)
[2018-09-08] MEDS ORDERED: ROCURONIUM 50 MG/5 ML VIAL IV ONE (08:31)
[2018-09-08] MEDS ORDERED: KETOROLAC 30 MG/ML INJ ONE (09:37)
[2018-09-08] MEDS ORDERED: GLYCOPYRROLATE 0.2 MG/ML SYR ONE (09:48)
[2018-09-08] MEDS ORDERED: NEOSTIGMINE 1 MG/ML -10 ML VIAL ONE (09:48)
[2018-09-08] MEDS: MORPHINE 4 MG/ML SYR ONE ×2 (09:52→10:00)
--- NOTE | 2018-09-08 09:59 | P.BOP ---
Preoperative diagnosis: Tender left inguinal hernia Postoperative diagnosis: same Primary procedure: Open repair of tender left inguinal henia with mesh Fur Trimmer: DAVID HERMAN (AGRICULTURIST) Estimated blood loss: <10cc Specimen: hernia sac Findings: as above Anesthesia: General Transferred to: Recovery Room Condition: Good
[2018-09-08] MEDS ORDERED: ONDANSETRON HCL 40 MG/20 ML VIAL ONE (10:07)
[2018-09-08 14:09] VITALS: TEMP 97; O2SAT 99
[2018-09-08 14:11] VITALS: BP 185/108
--- NOTE | 2018-09-10 02:24 | OP ---
Date of Procedure: 09/08/2018 Surgeon: Jamel Quigley MD Parimutuel Ticket Seller: SORAIDA hSaw. Preoperative Diagnosis: Tender left inguinal hernia. Postoperative Diagnosis: Tender left inguinal hernia. Procedures: Open repair of tender left inguinal hernia with mesh. Specimen: Hernia sac. Anesthesia: General plus local. Indications: This is the case of a male, who comes to us with a tender left inguinal hernia. The be nefits, alternatives, and risks of repair were fully explained to the patient, which included, but no t limited to infection, bleeding, damage to adjacent structures, anesthesia complication, chronic num bness, chronic pain, testicular damage, AR, even . He also understands this might not relieve a ny symptoms. He might need more than one surgical intervention. He was explained also where the int ention to use mesh in that area, the pros and cons of it, and he was allowed to ask questions and ans wered to his satisfaction. At the end, he did allow me to use mesh. The area of concern was marked by me and the patient in the holding room. Description Of Procedure: Patient was brought to the operating room, placed in supine position. Ane sthesia was done without complication. A time-out was called. The abdominal area and inguinal regio n were prepped and draped in a sterile fashion. Local anesthetic was applied followed by sharp incis ion of the skin. Rachele fascia was opened. External oblique aponeurosis was opened in the direction of the fibers to connect to the superficial inguinal ring. Ilioinguinal nerve, iliohypogastric nerv e were protected behind the external oblique aponeurosis. Ralph was placed around the spermatic co rd. Cremasteric fibers were carefully opened. We find a hernia sac present that was twisted and sut ure ligated with Prolene. A mesh plug was placed over the area and secured with VersaTack. Then, th e mesh sheet was placed securing that to the pubic tubercle, shelving edge of inguinal ligament, malik sversalis fascia, and the tail looped around the spermatic cord without strangulation. Ilioinguinal nerve, iliohypogastric nerve were brought back into the inguinal canal. Hemostasis was obtained. At that moment, we proceeded to reconstruct the superficial inguinal ring and then closed the external oblique aponeurosis using #2 nylon making sure the nerves were not included in the suture line. Scar pa fascia with 3-0 chromic and the skin was approximated with 4-0 PDS. Patient tolerated the procedu re well. At the end of the case, the testicles were in the scrotum. Patient was sent to the [facility] in stable condition. Disposition: Home. Followup: Tolerated. No heavy lifting. Followup: In my office in 1 week. Call for appointment [phone]. Keep area dry for 48 hours, then may shower. Keep the Steri-Strips intact. Medications: See orders. YARELY/HARDIK Voice ID: [id number] Report ID: [id number]
== END 2018-09-08 12:04 | disposition home or self-care (01) ==
LOC: OR 07:13
PROVIDERS: ATTEND Surgery
PROC: 0YU60JZ Supplement Left Inguinal Region with Synthetic Substitute, Open Approach (ICD-10-PCS; principal; 2018-09-08 09:15)
DX: K40.90 Unilateral inguinal hernia, without obstruction or gangrene, not specified as recurrent (principal); I11.9 Hypertensive heart disease without heart failure; I48.1 Persistent atrial fibrillation; I45.10 Unspecified right bundle-branch block; E78.5 Hyperlipidemia, unspecified; I25.10 Atherosclerotic heart disease of native coronary artery without angina pectoris; Z79.82 Long term (current) use of aspirin; Z79.01 Long term (current) use of anticoagulants; Z79.899 Other long term (current) drug therapy; Z85.46 Personal history of malignant neoplasm of prostate; Z95.0 Presence of cardiac pacemaker; Z95.5 Presence of coronary angioplasty implant and graft
CPT/HCPCS: 49505; 85025; 80048; 36415; 88302; 71046; J2704; J2710; J3010; J1100; J0690; J2405

== ENCOUNTER 2023-02-20 11:19 | Inpatient (IN) | payer OTHER ==
[2023-02-20] MEDS ORDERED: NA CHLORIDE 0.9% 100 ML ONE (12:01)
[2023-02-20] MEDS ORDERED: PIPERACIL/TAZO 3.375 GM VIAL IV ONE (12:02)
[2023-02-20 12:11] LABS: Absolute Lymphocytes (CBC) 0.8 K/uL (0.7-4.9); Hematocrit 37.4 % (39.6-49.0); Lymphocytes % 14.3 % (15.3-44.8); MCV 102.1 fL (80-100); MPV 7.3 fL (7.6-11.3); Platelets 155 thou/uL (152-406); RBC Red Blood Cell Count 3.66 M/uL (4.33-5.43)
[2023-02-20] MEDS ORDERED: VANCOMYCIN 1.5 GM in NA CHLORIDE 0.9% 500 ML IVPB ONE (12:15)
--- NOTE | 2023-02-20 12:15 | RAD REPORT ---
EXAM DESCRIPTION: RAD - Foot Right 3 View - 02/20/2023 11:47 am CLINICAL HISTORY: PAIN COMPARISON: No comparisons FINDINGS: Soft tissue swelling is seen affecting the mid and forefoot. Moderate vascular atheroscler osis. Moderate plantar calcaneal spur. No fracture, dislocation or radiographic evidence of osteomyel itis. If osteomyelitis remains a clinical concern, MRI would be recommended.
[2023-02-20 12:39] LABS: Albumin 3.3 g/dL (3.4-5.0); Bilirubin Total 1.2 mg/dL (0.2-1.0); C-Reactive Protein 49.3 mg/L (<3.00); Potassium 4.1 mEq/L (3.5-5.1); Protein, Total 7.3 g/dL (6.4-8.2)
--- NOTE | 2023-02-20 13:10 | ER ---
Nurse's Notes [facility] Name: Ed Delgado Age: 87 yrs Sex: Male : 1935 Arrival Date: 02/20/2023 Time: 11:19 Bed 3 Private MD: Diagnosis: Cellulitis of right lower limb Presentation: 02/20 11:32 Chief complaint: Sent by Dr. Nuñez for chronic wound on right foot. Coronavirus screen: hb At this time, the client does not indicate any symptoms associated with coronavirus-19. Ebola Screen: No symptoms or risks identified at this time. Initial Sepsis Screen: Does the patient meet any 2 criteria? No. Patient's initial sepsis screen is negative. Does the patient have a suspected source of infection? No. Patient's initial sepsis screen is negative. Risk Assessment: Do you want to hurt yourself or someone else? Patient reports no desire to harm self or others. Onset of symptoms is unknown. 11:32 Method Of Arrival: Ambulatory hb 11:32 Acuity: TAYLOR 3 hb Historical: - Allergies: 11:33 No Known Allergies; hb - PMHx: 11:33 Atrial Fib; Prostate Cancer; Hypertension; hb - Immunization history:: Adult Immunizations unknown. - Social history:: Smoking status: Patient denies any tobacco usage or history of. Screenin:25 [facility] ED Fall Risk Assessment (Adult) History of falling in the last 3 months, ko1 including since admission No falls in past 3 months (0 pts) Confusion or Disorientation No (0 pts) Intoxicated or Sedated No (0 pts) Impaired Gait No (0 pts) Mobility Assist Device Used No (0 pt) Altered Elimination No (0 pt) Score/Fall Risk Level 0 - 2 = Low Risk Oriented to surroundings, Maintained a safe environment, Educated pt \T\ family on fall prevention, incl call for assistance when getting out of bed, Assessed \T\ reinforced patient's understanding of fall precautions, Provided non-skid footwear, Hourly rounding (assess needs \T\ fall precautionary measures) done, Used ambulatory aids as needed (educated on \T\ assisted with), Used gait belt as appropriate. Abuse screen: Denies threats or abuse. Denies injuries from another. Nutritional screening: No deficits noted. Tuberculosis screening: No symptoms or risk factors identified. Assessment: 12:25 General: Appears in no apparent distress. comfortable, Behavior is calm, cooperative, ko1 appropriate for age. Pain: Complains of pain in right first toe. Neuro: No deficits noted. Cardiovascular: No deficits noted. Respiratory: No deficits noted. GI: No deficits noted. : No deficits noted. EENT: No deficits noted. Derm: Wound noted right first toe. Musculoskeletal: Swelling present in right first toe. 14:30 Reassessment: Attempted to call report, Tammy will call me back, she just received ICU ko1 admit. Vital Signs: 11:32 BP 132 / 79; Pulse 86; Resp 16; Temp 97(O); Pulse Ox 100% on R/A; Weight 88.45 kg; hb Height 6 ft. 1 in. ; Pain 5/10; 12:25 BP 107 / 65; Pulse 80; Resp 15; Pulse Ox 99% ; ko1 11:32 Body Mass Index 25.73 (88.45 kg, 185.42 cm) hb 11:32 Pain Scale: Adult hb ED Course: 11:22 Patient arrived in ED. ts1 11:23 Gerald Sarabia MD is Attending Physician. ec2 11:31 Lucrecia Vivar, CLEMENTINE is Primary Nurse. ko1 11:33 Triage completed. hb 11:46 X-ray completed. Portable x-ray completed in exam room. Patient tolerated procedure mh1 well. 11:55 Inserted saline lock: 22 gauge in right antecubital area, using aseptic technique. ko1 Blood collected. 11:59 CRP Sent. ko1 11:59 CMP Sent. ko1 11:59 CBC with Diff Sent. ko1 11:59 Blood Culture Adult (2) Sent. ko1 12:25 Patient has correct armband on for positive identification. Bed in low position. Call ko1 light in reach. Side rails up X 1. Adult w/ patient. Pulse ox on. NIBP on. Door closed. Noise minimized. Lights dimmed. Warm blanket given. 13:10 David Christianson is Hospitalizing Provider. ec2 14:11 Wily Pelaez MD is Hospitalizing Provider. ec2 15:31 No provider procedures requiring assistance completed. Patient admitted, IV remains in ko1 place. 15:31 Provided Education on: NA. ko1 15:33 Arm band placed on left wrist. Patient placed in an exam room, on a stretcher, on pulse ko1 oximetry, Patient notified of wait time. Administered Medications: 12:11 Drug: Piperacillin-Tazobactam IVPB 3.375 grams IVPB once over 60 mins; (mix in NS 100 ko1 mL) Route: IVPB; Infused Over: 60 mins; Site: right antecubital; 12:54 Follow up: Response: No adverse reaction; IV Status: Completed infusion; IV Intake: ko1 100ml 12:53 Drug: vancoMYCIN IVPB 1.5 grams IVPB at calculated rate once Route: IVPB; Rate: ko1 calculated rate; Site: right antecubital; Medication: 15:31 VIS not applicable for this client. ko1 Intake: 12:54 IV: 100ml; Total: 100ml. ko1 Outcome: 13:10 Decision to Hospitalize by Provider. ec2 15:31 Admitted to Tele accompanied by tech, via wheelchair, room 414, with chart, Report ko1 called to CLEMENTINE CROCKER 15:31 Condition: stable 15:31 Instructed on the need for admit, 15:39 Patient left the ED. iw Signatures: Cielo Hooks 1 Carol Jay, RN RN Payal Zhao, CLEMENTINE RN Lucrecia Wood RN RN ko1 Hayley Vee PAS PAS ts1 Gerald Sarabia MD MD ec2
--- NOTE | 2023-02-20 13:10 | EDPHYS ---
Physician Documentation [facility] Name: Ed Delgado Age: 87 yrs Sex: Male : 1935 Arrival Date: 02/20/2023 Time: 11:19 Bed 3 Private MD: ED Physician Gerald Sarabia HPI: 02/20 11:34 This 87 yrs old Male presents to ER via Ambulatory with complaints of Dr Nuñez sent ec2 patient for possible bone infection. 11:34 Patient arrives today due to concern for persistent right foot erythema. Patient has ec2 been seen by Dr. Nuñez, podiatry, was concerned about possible osteomyelitis, he recommended ER evaluation and admission. Patient reports no fevers or chills, no nausea or vomiting, states he has been on 2 rounds of antibiotics with no improvement in symptoms.. Historical: - Allergies: 11:33 No Known Allergies; hb - PMHx: 11:33 Atrial Fib; Prostate Cancer; Hypertension; hb - Immunization history:: Adult Immunizations unknown. - Social history:: Smoking status: Patient denies any tobacco usage or history of. ROS: 11:34 Constitutional: as per hpi ec2 Exam: 11:34 Constitutional: GEN: NAD Head: atraumatic Eyes: EOMI Ears: External ears are ec2 normal. CV: regular rate LUNGS: no respiratory distress ABD: non-distended SKIN: Medial portion of the dorsum of the left foot with erythema noted, warmth appreciated MSK: no evidence of trauma NEURO: moves all extremities equally Vital Signs: 11:32 BP 132 / 79; Pulse 86; Resp 16; Temp 97(O); Pulse Ox 100% on R/A; Weight 88.45 kg; hb Height 6 ft. 1 in. ; Pain 5/10; 12:25 BP 107 / 65; Pulse 80; Resp 15; Pulse Ox 99% ; ko1 11:32 Body Mass Index 25.73 (88.45 kg, 185.42 cm) hb 11:32 Pain Scale: Adult hb MDM: 11:24 Patient medically screened. ec2 11:34 Data reviewed: vital signs. ED course: Patient arrives today for evaluation of possible ec2 osteomyelitis. Examination remarkable for well-appearing nontoxic individual is otherwise in no acute distress. Will obtain lab work, foot x-ray, empirically treat with antibiotics and admit with podiatry to evaluate as well.. 12:41 ED course: CBC is reassuring without leukocytosis. Metabolic profile with appropriate ec2 electrolytes, diminished renal function noted, CRP elevated at 49. Foot x-ray shows soft tissue swelling. Will admit for persistent cellulitis, possible osteomyelitis. . 02/20 11:34 Order name: CBC with Diff; Complete Time: 12:40 ec2 02/20 11:34 Order name: CMP; Complete Time: 12:40 ec2 02/20 11:34 Order name: CRP; Complete Time: 12:40 ec2 02/20 11:34 Order name: Blood Culture Adult (2) ec2 02/20 11:34 Order name: Foot Right 3 View XRAY ec2 02/20 12:15 Order name: RAD; Complete Time: 12:40 EDMS 02/20 15:15 Order name: CT EDMS Administered Medications: 12:11 Drug: Piperacillin-Tazobactam IVPB 3.375 grams IVPB once over 60 mins; (mix in NS 100 ko1 mL) Route: IVPB; Infused Over: 60 mins; Site: right antecubital; 12:54 Follow up: Response: No adverse reaction; IV Status: Completed infusion; IV Intake: ko1 100ml 12:53 Drug: vancoMYCIN IVPB 1.5 grams IVPB at calculated rate once Route: IVPB; Rate: ko1 calculated rate; Site: right antecubital; Disposition Summary: 02/20/23 13:10 Hospitalization Ordered Notes: Hospitalization Status: Inpatient Admission ec2 Location: Telemetry/[facility] (Inpatient) ec2 Condition: Stable ec2 Problem: new ec2 Symptoms: are unchanged ec2 Bed/Room Type: Standard ec2 Provider: Wily Pelaez(02/20/23 14:11) ec2 Room Assignment: 414(02/20/23 14:18) eb Diagnosis - Cellulitis of right lower limb ec2 Forms: - Medication Reconciliation Form ec2 - SBAR form ec2 - Leadership Thank You Letter ec2 Signatures: Dispatcher Victor ManuelHost Payal Alves RN RN hb Botello, Elizabeth eb Oliver, Kathy, RN RN ko1 Gerald Sarabia MD MD ec2 Corrections: (The following items were deleted from the chart) 14:11 13:10 David Christianson ec2 ec2 14:18 13:10 ec2 eb
--- NOTE | 2023-02-20 15:14 | RAD REPORT ---
EXAM DESCRIPTION: CT - Low Extremity Wo Cont - 02/20/2023 2:31 pm CLINICAL HISTORY: wound inection COMPARISON: No comparisons TECHNIQUE: Thin cut axial CT imaging of the right lower extremity (with attention on the right foot and ankle) was performed without IV contrast. Multiplanar reformats were generated and reviewed. All CT scans are performed using dose optimization technique as appropriate and may include automated exposure control or mA/KV adjustment according to patient size. FINDINGS: Pronounced subcutaneous soft tissue swelling about the foot and ankle most pronounced at t he dorsum and around the first digit. Mild skin irregularities along the first through third toes, pl ease correlate for presence of ulcers. No soft tissue gas. No findings to suggest presence of a discrete fluid collections within limits of noncontrast evaluati on. No acute fractures or osseous destructive changes or lucencies to suggest ongoing osteomyelitis on CT . Advanced degenerative changes throughout the midfoot and at the first metatarsophalangeal articulat ion. Mild hallux valgus deformity. No other suspicious osseous lesion. Enthesopathy at the Achilles t endon attachment. Vascular calcifications. IMPRESSION: No evidence of acute fractures or osseous destructive changes to suggest ongoing osteomy elitis on CT. Soft tissue swelling as above, without findings to suggest a discrete fluid collection on noncontrast CT.
[2023-02-20 16:10] VITALS: BMI 25.7
[2023-02-20] MEDS ORDERED: VANCOMYCIN 1 GM in NA CHLORIDE 0.9% 250 ML IVPB SCH (17:00)
[2023-02-20] MEDS ORDERED: VANCOMYCIN 750 MG in NA CHLORIDE 0.9% 150 ML IVPB ONE (17:00)
--- NOTE | 2023-02-20 17:26 | P.HP ---
Certification for Inpatient Patient admitted to: Inpatient With expected LOS: >2 Midnights Practitioner: I am a practitioner with admitting privileges, knowledge of patient current condition, hospital course, and medical plan of care. Services: Services provided to patient in accordance with Admission requirements found in Title 42 Section 412.3 of the Code of Federal Regulations Patient History Date of Service: 02/20/23 Reason for admission: R FOOT INFECTION History of Present Illness: RAYMOND IS 87 YO GM WITH PMH OF A FIB WHO HAS BEEN TO DR. GOMEZ FOR LAST 5 MTHS WITH TOE ULCER THAT HAS NOT HEALED. HE HAS HAD CELLULITIS ABOUT 3 TIMES AND GIVEN BACTRIM BY DR GOMEZ EVERY TIME WITH RESPONSE BUT LATER RECURRENCE. HE WAS SENT TO ER TODAY BY DR. GOMEZ. HE HAS REDNESS WITH WARMTH OF R GREAT TOE AND DISTAL FOOT. MEDIALLY. FOLLOWING IS HIS PMH Problem List 2018 A-fib [I48.91 0.3] 16 CARDIOVERSION FAILED. ONE ABLATION 16 CARDIOVERSION FAILED. ONE ABLATION 2018 Dysphagia, neurologic [R13.19] 2018 CVA (cerebral vascular accident) [I63.9 0.2] 2019 Pancytopenia [D61.818 1.1] 2019 Hypothyroid [E03.9] 2019 HTN (hypertension) [I10] 2019 Prostate cancer [C61 0.2] DR HENRY MDA. 1.2 RADIATION. AND CUABN DID SEEDS IN PROSTATE DR FIGUEROA MDA. 1.2 RADIATION. 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 SPEP NEG, HEP C NEG. 2022 Knee pain, left [M25.562] s/p fall. never had pain before fall. ddx includes meniscus injury vs aggravated OA. . X-ray ordered trial voltaren gel and cosamin s/p fall. neve Allergies No Known Allergies Allergy (Verified 09/06/18 15:32) Home Medications: Dabigatran Etexilate Mesylate [Pradaxa] 150 mg PO BID 04/19/18 Levothyroxine [Synthroid*] 88 mcg PO DAILY 04/19/18 Polyethylene Glycol 3350 [Miralax] 119 gm PO DAILY 04/19/18 Psyllium Husk (with Sugar) [Metamucil Packet] 3.4 gm PO DAILY 04/19/18 Quetiapine [Seroquel*] 25 mg PO BEDTIME 04/19/18 Irbesartan 1 tab PO DAILY 02/20/23 Metoprolol Succinate 1 tab PO BEDTIME 02/20/23 Silodosin 1 tab PO DAILY 02/20/23 Spironolactone 1 tab PO DAILY 02/20/23 - Past Medical/Surgical History Has patient received pneumonia vaccine in the past: No Diabetic: No -: HTN -: Afib -: BPH with [place] in Spring -: Chronic constipation -: Prostate CA -: Hip replacement -: Rotator Cuff sx with pins left shoulder -: back surgery -: Pacemaker 2008 - Family History Father -: Heart disease, Hypertension Mother Notes: none Brother -: Stroke - Social History Smoking Status: Never smoker Alcohol use: No CD- Drugs: No Caffeine use: Yes Place of Residence: Home Review of Systems 10-point ROS is otherwise unremarkable Physical Examination - Vital Signs Temperature: 97 F Blood Pressure: 107/65 Pulse: 80 Respirations: 15 - Physical Exam General: Mild distress HEENT: Atraumatic, PERRLA, Mucous membr. moist/pink, EOMI, Sclerae nonicteric Neck: Supple, 2+ carotid pulse no bruit, No LAD, Without JVD or thyroid abnormality Respiratory: Clear to auscultation bilaterally, Normal air movement Cardiovascular: Abnormal S1 S2 Gastrointestinal: Normal bowel sounds, No tenderness Musculoskeletal: No tenderness Integumentary: No rashes, Other (R SIDE DISTAL TOE AND FOOT MEDIAL ERYTHEMA. SMALL 2 MM ULCER WITH NO PUS ON THE PLANTER SURFACE OF TOE. ) Neurological: Normal gait, Normal speech, Normal strength at 5/5 x4 extr, Normal tone, Normal affect Lymphatics: No axilla or inguinal lymphadenopathy - Studies Laboratory Data (last 24 hrs) 02/20/23 02/20/23 11:55 11:55 WBC 5.80 Hgb 12.6 L Hct 37.4 L Plt Count 155 Sodium 133 L Potassium 4.1 BUN 27 H Creatinine 1.44 H Glucose 94 Total Bilirubin 1.2 H AST 24 ALT 21 Alkaline Phosphatase 122 H Assessment and Plan - Problems (Diagnosis) (1) Cellulitis of foot, right Current Visit: Yes Status: Acute Plan: IV VANCOMYCIN CT NEG FOR OM HE CAN NOT DO MRI HE HAS PPM. HE MAY BE ABLE TO GO HOME ON ORAL ZYVOX IF VANCO WORKS. (2) Atrial fibrillation Current Visit: No Status: Chronic Plan: STABLE, CONTINUE A FIB MEDS. Qualifiers: - Advance Directives Does patient have a Living Will: No Does patient have a Durable POA for Healthcare: Yes
[2023-02-20] MEDS ORDERED: VANCOMYCIN 1 GM/VIAL ONE (17:37)
[2023-02-20] MEDS ORDERED: NA CHLORIDE 0.9% 250 ML ONE (17:43)
[2023-02-20] MEDS: HEPARIN 5000 UNIT/ML 1 ML VIAL SQ SCH (17:55)
--- NOTE | 2023-02-20 18:58 | RAD REPORT ---
EXAM DESCRIPTION: US - Lower Extremity Arterial Bilat - 02/20/2023 5:13 pm CLINICAL HISTORY: right foot swelling COMPARISON: Low Extremity Wo Cont dated 02/20/2023 TECHNIQUE: Bilateral lower extremity arterial Doppler examination was performed with tristan wren FINDINGS: Triphasic waveforms are seen throughout both lower extremity arterial systems to the level of the pop liteal arteries. Monophasic flow seen along the right posterior tibial and dorsalis pedis arteries. B iphasic flow seen along the left posterior tibial and dorsalis pedis arteries. IMPRESSION: [id number] peripheral vascular disease of the distal lower extremities, worse on t he right.
[2023-02-20] MEDS: DABIGATRAN 75 MG CAP PO SCH (21:28)
[2023-02-20] MEDS: METOPROLOL XL 25 MG TAB PO SCH (21:29)
[2023-02-20] MEDS: QUETIAPINE 25 MG TAB PO SCH (21:29)
[2023-02-20 22:18] LABS: Specific Gravity 1.013 (1.005-1.030); Urine Bacteria <20 /HPF (<20); Urine Bilirubin NEGATIVE (Negative); Urine Blood 3+ (OVER) (Negative); Urine Clarity Extremely Turbid (Clear); Urine Color Light-Orange (Yellow); Urine Crystals Unidentified Few /HPF (None Seen); Urine Glucose NEGATIVE (Negative); Urine Mucus Slight /HPF (None Seen); Urine Protein 1+ (Negative); Urine RBC >50 /HPF (None Seen); Urine Urobilinogen Normal (Normal); Urine pH 5.5 (5.0-7.0)
[2023-02-21] MEDS: HEPARIN 5000 UNIT/ML 1 ML VIAL SQ SCH ×3 (01:24→16:48)
[2023-02-21 07:53] LABS: Absolute Lymphocytes (CBC) 1.1 K/uL (0.7-4.9); Hematocrit 34.2 % (39.6-49.0); Lymphocytes % 27.2 % (15.3-44.8); MPV 7.4 fL (7.6-11.3); Platelets 131 thou/uL (152-406); RBC Red Blood Cell Count 3.42 M/uL (4.33-5.43)
[2023-02-21] MEDS ORDERED: PNEUMOCOCCAL VACCINE 0.5 ML IMVAC ONE (08:00)
[2023-02-21 08:07] LABS: Magnesium 1.7 mg/dL (1.6-2.4); Phosphorus 2.9 mg/dL (2.5-4.9)
[2023-02-21] MEDS ORDERED: POLYETHYL GLY 3350 17 GM/DOSE PO SCH (09:00)
[2023-02-21] MEDS: DABIGATRAN 75 MG CAP PO SCH ×2 (09:00→20:02)
[2023-02-21] MEDS: SILODOSIN 8 MG PO SCH (09:00)
--- NOTE | 2023-02-21 09:37 | P.CNS ---
Date of Consult: 02/21/23 Reason for Consult: possible osteomyelitis right great toe Chief Complaint: R FOOT INFECTION Allergies No Known Allergies Allergy (Verified 09/06/18 15:32) Home Medications: Dabigatran Etexilate Mesylate [Pradaxa] 150 mg PO BID 04/19/18 Levothyroxine [Synthroid*] 88 mcg PO DAILY 04/19/18 Polyethylene Glycol 3350 [Miralax] 119 gm PO DAILY 04/19/18 Psyllium Husk (with Sugar) [Metamucil Packet] 3.4 gm PO DAILY 04/19/18 Quetiapine [Seroquel*] 25 mg PO BEDTIME 04/19/18 Irbesartan 1 tab PO DAILY 02/20/23 Metoprolol Succinate 1 tab PO BEDTIME 02/20/23 Silodosin 1 tab PO DAILY 02/20/23 Spironolactone 1 tab PO DAILY 02/20/23 - Past Medical/Surgical History Diabetic: No -: HTN -: Afib -: BPH with [facility] in [place] -: Chronic constipation -: Prostate CA -: Hip replacement -: Rotator Cuff sx with pins left shoulder -: back surgery -: Pacemaker 2008 - Family History Father Medical History: Heart disease, Hypertension Mother Notes: none Brother Medical History: Stroke - Social History Alcohol use: No CD- Drugs: No Caffeine use: Yes Place of Residence: Home Review of Systems 10-point ROS is otherwise unremarkable Physical Examination Temp Pulse Resp BP Pulse Ox 97.1 F 79 18 110/62 99 02/21/23 07:01 02/21/23 07:01 02/21/23 07:01 02/21/23 07:01 02/21/23 07:01 General: Alert, In no apparent distress, Oriented x3 Cardiovascular: No edema, Abnormal pulses (arterial doppler demonstrates pvd ri ght greater than left) Capillary refill: >2 Seconds Musculoskeletal: No clubbing, No swelling, No contractures, No tenderness, No warmth Integumentary: Other (ulceration right great toe improved with decreased erythema and edema, no drainage, no ascending cellulitis. Wound measurement of 0.3cmX0.3cmX0.1cm plantar right great toe. Wound left great to measuring 0.4cmX0.4cmX0.1cm with granular base, no signs of infection) Neurological: Abnormal sensation Laboratory Data (last 24 hrs) 02/20/23 02/20/23 11:55 11:55 WBC 5.80 Hgb 12.6 L Hct 37.4 L Plt Count 155 Sodium 133 L Potassium 4.1 BUN 27 H Creatinine 1.44 H Glucose 94 Total Bilirubin 1.2 H AST 24 ALT 21 Alkaline Phosphatase 122 H Imagings Data: xray and ct negative for osteomyelitis - Problems (1) Cellulitis of foot, right Current Visit: Yes Status: Acute Conclusions/Impression: Discussed case with Dr. Pelaez. Patient will be sent for outpatient pvd evaluation and treatment. Oral antibiotics on discharge with wound care to include collagen powder. Patient to be referred to [facility] for offloading modification of insoles Physician Review: Patient Assessed, Agree with Above Assessment and Plan Time Spent Managing Pts care (In Minutes): 30
[2023-02-21] MEDS: SPIRONOLACTONE 25 MG TABLET PO SCH (10:51)
[2023-02-21] MEDS: LEVOTHYROXINE SOD 0.088 MG TAB PO SCH (10:51)
[2023-02-21] MEDS: VALSARTAN 80 MG TAB PO SCH (10:52)
--- NOTE | 2023-02-21 12:00 | P.PN ---
Subjective Date of Service: 02/21/23 Chief Complaint: R FOOT INFECTION Subjective: Improving HE IS IMPROVING ON VANCOMYCIN IV. MILD PAIN IN PLANTER AREA. MRI NEG FOR OM Review of Systems 10-point ROS is otherwise unremarkable Physical Examination - Vital Signs Temperature: 97.1 F Blood Pressure: 110/62 Pulse: 79 Respirations: 18 Pulse Ox (%): 99 - Physical Exam General: Oriented x3, Mild distress HEENT: Atraumatic, PERRLA, EOMI Neck: Supple, JVD not distended Respiratory: Clear to auscultation bilaterally, Normal air movement Cardiovascular: Irregular heart rate/rhythm Gastrointestinal: Normal bowel sounds, No tenderness Musculoskeletal: No tenderness Integumentary: No rashes Neurological: Normal speech, Normal tone, Normal affect Lymphatics: No axilla or inguinal lymphadenopathy - Studies Laboratory Data (last 24 hrs) 02/20/23 02/20/23 11:55 11:55 WBC 5.80 Hgb 12.6 L Hct 37.4 L Plt Count 155 Sodium 133 L Potassium 4.1 BUN 27 H Creatinine 1.44 H Glucose 94 Total Bilirubin 1.2 H AST 24 ALT 21 Alkaline Phosphatase 122 H Medications List Reviewed: Yes Assessment And Plan - Current Problems (Diagnosis) (1) Cellulitis of foot, right Current Visit: Yes Status: Acute Plan: IV VANCOMYCIN CT NEG FOR OM HE CAN NOT DO MRI HE HAS PPM. HE MAY BE ABLE TO GO HOME ON ORAL ZYVOX IF VANCO WORKS. NEG MRI. DOPPLER POS FOR MOD BLOCKAGE REFER TO DR MILLER OP. REFER TO [facility], ANIL FOR OFF LOADING BOOT. (2) Atrial fibrillation Current Visit: No Status: Chronic Plan: STABLE, CONTINUE A FIB MEDS. Qualifiers: Physician Review: Patient Assessed, Agree with Above Assessment and Plan
[2023-02-21] MEDS ORDERED: VANCOMYCIN 1.5 GM in NA CHLORIDE 0.9% 500 ML IVPB SCH (13:00)
[2023-02-21] MEDS: VANCOMYCIN 1.5 GM in NA CHLORIDE 0.9% 500 ML IVPB SCH (13:20)
[2023-02-21] MEDS: QUETIAPINE 25 MG TAB PO SCH (20:01)
[2023-02-21] MEDS: METOPROLOL XL 25 MG TAB PO SCH (20:01)
[2023-02-22] MEDS: HEPARIN 5000 UNIT/ML 1 ML VIAL SQ SCH ×2 (01:11→09:15)
[2023-02-22 08:35] LABS: Absolute Lymphocytes (CBC) 0.7 K/uL (0.7-4.9); Hematocrit 35.3 % (39.6-49.0); Lymphocytes % 16.9 % (15.3-44.8); MPV 7.4 fL (7.6-11.3); Platelets 160 thou/uL (152-406)
[2023-02-22 08:51] LABS: Magnesium 1.7 mg/dL (1.6-2.4); Phosphorus 2.9 mg/dL (2.5-4.9); Potassium 4.1 mEq/L (3.5-5.1)
[2023-02-22] MEDS: SILODOSIN 8 MG PO SCH (09:00)
[2023-02-22] MEDS: POLYETHYL GLY 3350 17 GM/DOSE PO SCH (09:15)
[2023-02-22] MEDS: DABIGATRAN 75 MG CAP PO SCH ×2 (09:17→20:10)
[2023-02-22] MEDS: VALSARTAN 80 MG TAB PO SCH (09:19)
[2023-02-22] MEDS: LEVOTHYROXINE SOD 0.088 MG TAB PO SCH (09:20)
[2023-02-22] MEDS: SPIRONOLACTONE 25 MG TABLET PO SCH (09:20)
[2023-02-22] MEDS: MEDIHONEY 44 ML TOPICAL TUBE TOP SCH (09:21)
[2023-02-22] MEDS ORDERED: POLYETHYL GLY 3350 17 GM/DOSE PO ONE (11:52)
[2023-02-22] MEDS: VANCOMYCIN 1.5 GM in NA CHLORIDE 0.9% 500 ML IVPB SCH (12:56)
[2023-02-22] MEDS ORDERED: MAGNESIUM SULFATE 1 gm IVPB 1 GM/100 ML BAG IV ONE (12:59)
--- NOTE | 2023-02-22 13:04 | P.PN ---
Subjective Date of Service: 02/22/23 Chief Complaint: R FOOT INFECTION Subjective: Improving HE IS IMPROVING ON VANCOMYCIN IV. MILD PAIN IN PLANTER AREA. MRI NEG FOR OM HE IS LOT BETTER. HAS MILD PAIN. Review of Systems 10-point ROS is otherwise unremarkable General: Weakness Physical Examination - Vital Signs Temperature: 97.6 F Blood Pressure: 115/72 Pulse: 80 Respirations: 18 Pulse Ox (%): 98 - Physical Exam General: Acute distress, Mild distress HEENT: Atraumatic, PERRLA, EOMI Neck: Supple, JVD not distended Respiratory: Clear to auscultation bilaterally, Normal air movement Cardiovascular: Regular rate/rhythm, Normal S1 S2 Gastrointestinal: Normal bowel sounds, No tenderness Musculoskeletal: No tenderness Integumentary: No rashes, Other (ERYTHEMA OF THE FOOT BETTER BUT NOT ALL CLEAR YET.) Neurological: Normal speech, Normal tone, Normal affect Lymphatics: No axilla or inguinal lymphadenopathy - Studies Medications List Reviewed: Yes Assessment And Plan - Current Problems (Diagnosis) (1) Cellulitis of foot, right Current Visit: Yes Status: Acute Plan: IV VANCOMYCIN CT NEG FOR OM HE CAN NOT DO MRI HE HAS PPM. HE MAY BE ABLE TO GO HOME ON ORAL ZYVOX IF VANCO WORKS. NEG MRI. DOPPLER POS FOR MOD BLOCKAGE REFER TO DR MILLER OP. REFER TO [facility] FOR OFF LOADING BOOT. IV VANCO. ZYVOX FROM HOME. (2) Atrial fibrillation Current Visit: No Status: Chronic Plan: STABLE, CONTINUE A FIB MEDS. Qualifiers: Physician Review: Patient Assessed, Agree with Above Assessment and Plan
[2023-02-22 19:51] VITALS: O2SAT 97
[2023-02-22] MEDS: QUETIAPINE 25 MG TAB PO SCH (20:10)
[2023-02-22] MEDS: METOPROLOL XL 25 MG TAB PO SCH (20:10)
[2023-02-23 06:10] LABS: Magnesium 1.9 mg/dL (1.6-2.4); Phosphorus 3.1 mg/dL (2.5-4.9); Potassium 4.1 mEq/L (3.5-5.1)
[2023-02-23 06:13] LABS: Absolute Lymphocytes (CBC) 1.2 K/uL (0.7-4.9); Hematocrit 35.4 % (39.6-49.0); Lymphocytes % 29.3 % (15.3-44.8); MCV 101.2 fL (80-100); MPV 7.4 fL (7.6-11.3); Platelets 156 thou/uL (152-406)
[2023-02-23] MEDS: SILODOSIN 8 MG PO SCH (09:00)
[2023-02-23] MEDS: VALSARTAN 80 MG TAB PO SCH (09:34)
[2023-02-23] MEDS: DABIGATRAN 75 MG CAP PO SCH (09:34)
[2023-02-23] MEDS: POLYETHYL GLY 3350 17 GM/DOSE PO SCH (09:34)
[2023-02-23] MEDS: SPIRONOLACTONE 25 MG TABLET PO SCH (09:34)
[2023-02-23] MEDS: LEVOTHYROXINE SOD 0.088 MG TAB PO SCH (09:34)
[2023-02-23] MEDS: MEDIHONEY 44 ML TOPICAL TUBE TOP SCH (09:35)
--- NOTE | 2023-02-23 11:36 | P.DS ---
Admission Date: 02/20/23 Discharge Date: 02/23/23 Disposition: ROUTINE DISCHARGE Discharge Condition: FAIR Reason for Admission: R FOOT INFECTION - Problems (1) Cellulitis of foot, right Current Visit: Yes Status: Acute (2) Atrial fibrillation Current Visit: No Status: Chronic Qualifiers: Brief History of Present Illness: RAYMOND IS 87 YO GM WITH PMH OF A FIB WHO HAS BEEN TO DR. GOMEZ FOR LAST 5 MTHS WITH TOE ULCER THAT HAS NOT HEALED. HE HAS HAD CELLULITIS ABOUT 3 TIMES AND G IVEN BACTRIM BY DR GOMEZ EVERY TIME WITH RESPONSE BUT LATER RECURRENCE. HE WAS SENT TO ER TODAY BY DR. GOMEZ. HE HAS REDNESS WITH WARMTH OF R GREAT TOE AND DISTAL FOOT. MEDIALLY. FOLLOWING IS HIS PMH Problem List 2018 A-fib [I48.91 0.3] 16 CARDIOVERSION FAILED. ONE ABLATION 16 CARDIOVERSION FAILED. ONE ABLATION 2018 Dysphagia, neurologic [R13.19] 2018 CVA (cerebral vascular accident) [I63.9 0.2] 2019 Pancytopenia [D61.818 1.1] 2019 Hypothyroid [E03.9] 2019 HTN (hypertension) [I10] 2019 Prostate cancer [C61 0.2] DR HENRY MDA. 1.2 RADIATION. AND CUABN DID SEEDS IN PROSTATE DR HENRY MDA. 1.2 RADIATION. 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 SPEP NEG, HEP C NEG. 2022 Knee pain, left [M25.562] s/p fall. never had pain before fall. ddx includes meniscus injury vs aggravated OA. . X-ray ordered trial voltaren gel and cosamin s/p fall. [facility] Course: RAYMOND HAS HAD R FOOT INFECTION WITH CELLULITIS THAT HAD 3 COURSE OF BACTRIM BY DR. GOMEZ WITH RECOVERY AND THEN RECURRENCE. HE NEEDED VANCOMYCIN HERE, HAS IMPROVED WELL. ULCER IS ALSO CLOSING HE IS NOT WALKING ON IT. HE HAS DIAB ETIC BOOTS BUT HE NEEDS OFF LOADING BY [facility]. HE ALSO NEEDS VASCULAR FOLLOW UP. HE WILL COME TO OFFICE THURSDAY AND WILL TAKE CARE OF ALL THAT. HE WILL GET ONE DOSE OF VANCOMYCIN TODAY BEFORE HE GOES. [facility] IS CLOSED TODAY. HE WILL NEED ZYVOX FOR 10 DAYS. Vital Signs/Physical Exam: Temp Pulse Resp BP Pulse Ox 98.0 F 74 13 122/72 97 02/23/23 08:00 02/23/23 09:34 02/23/23 08:00 02/23/23 09:34 02/23/23 08:00 Laboratory Data at Discharge: WBC 4.20 thou/uL (4.3-10.9) L 02/23/23 05:33 Hgb 12.1 g/dL (13.6-17.9) L 02/23/23 05:33 Hct 35.4 % (39.6-49.0) L 02/23/23 05:33 Plt Count 156 thou/uL (152-406) 02/23/23 05:33 Sodium 135 mEq/L (136-145) L 02/23/23 05:33 Potassium 4.1 mEq/L (3.5-5.1) 02/23/23 05:33 BUN 22 mg/dL (7-18) H 02/23/23 05:33 Creatinine 1.11 mg/dL (0.70-1.30) 02/23/23 05:33 Glucose 86 mg/dL (74-106) 02/23/23 05:33 Phosphorus 3.1 mg/dL (2.5-4.9) 02/23/23 05:33 Magnesium 1.9 mg/dL (1.6-2.4) 02/23/23 05:33 Total Bilirubin 1.2 mg/dL (0.2-1.0) H 02/20/23 11:55 AST 24 U/L (15-37) 02/20/23 11:55 ALT 21 U/L (16-61) 02/20/23 11:55 Alkaline Phosphatase 122 U/L (45-117) H 02/20/23 11:55 Home Medications: Dabigatran Etexilate Mesylate [Pradaxa] 150 mg PO BID 04/19/18 Levothyroxine [Synthroid*] 88 mcg PO DAILY 04/19/18 Polyethylene Glycol 3350 [Miralax] 17 gm PO DAILY 04/19/18 Psyllium Husk (with Sugar) [Metamucil Packet] 3.4 gm PO DAILY 04/19/18 Quetiapine [Seroquel*] 25 mg PO BEDTIME 04/19/18 Irbesartan 1 tab PO DAILY 02/20/23 Metoprolol Succinate 1 tab PO BEDTIME 02/20/23 Silodosin 1 tab PO DAILY 02/20/23 Spironolactone 1 tab PO DAILY 02/20/23 Linezolid [Zyvox] 600 mg PO BID #20 tab 02/23/23 New Medications: Linezolid [Zyvox] 600 mg PO BID #20 tab Followup: Wily Pelaez MD [Primary Care Provider] -
[2023-02-23] MEDS: VANCOMYCIN 1.5 GM in NA CHLORIDE 0.9% 500 ML IVPB SCH (13:15)
[2023-02-23 14:30] VITALS: BP 162/82; TEMP 97.4
== END 2023-02-23 16:25 | disposition home or self-care (01) | DRG 603 ==
LOC: ER 11:19 → INTOOBSV 13:24 → OBSVTOIN 13:24 → UNDOADMOB 13:24 → ERHOLD 13:24 → 4TH 14:30 → ERHOLD 02-22 12:56 → 4TH 02-22 12:56 → OBSVTOIN 02-22 12:56 → UNDODISIN 02-23 16:25
PROVIDERS: ADMIT Internal Medicine; ATTEND Internal Medicine
DX: L03.115 Cellulitis of right lower limb (principal); I48.20 Chronic atrial fibrillation, unspecified; I10 Essential (primary) hypertension; E03.9 Hypothyroidism, unspecified; N40.0 Benign prostatic hyperplasia without lower urinary tract symptoms; Z95.0 Presence of cardiac pacemaker; Z85.46 Personal history of malignant neoplasm of prostate; Z86.73 Personal history of transient ischemic attack (TIA), and cerebral infarction without residual deficits; Z79.890 Hormone replacement therapy; Z79.899 Other long term (current) drug therapy; Z96.649 Presence of unspecified artificial hip joint
CPT/HCPCS: 36415; 73700; 80048; 80053; 80202; 81001; 83735; 84100; 85025; 86140; 87040; 87086; 87088; 93925; 96365; 96375; 99285; J1644; J2543; J3475; J7040; J7050

== ENCOUNTER 2023-03-31 15:03 | Observation (INO) | payer OTHER ==
[2023-03-31 17:19] VITALS: O2SAT 100; BMI 23.0
[2023-03-31] MEDS ORDERED: POLYETHYL GLY 3350 17 GM/DOSE PO PRN (17:47)
[2023-03-31] MEDS ORDERED: ONDANSETRON 4 MG/2 ML VIAL IV PRN (17:49)
[2023-03-31] MEDS ORDERED: ACETAMINOPHEN 325 MG TABLET PO PRN (17:49)
[2023-03-31] MEDS ORDERED: DIPHENHYDRAMINE 25 MG TAB/CAP PO PRN (17:50)
--- NOTE | 2023-03-31 17:59 | RAD REPORT ---
EXAM DESCRIPTION: RAD - Shoulder Left 2 View - 03/31/2023 5:39 pm CLINICAL HISTORY: pain COMPARISON: <Comparisons> FINDINGS: Moderate AC joint and glenohumeral joint arthritic changes are present. No fracture or dis location.
--- NOTE | 2023-03-31 18:01 | RAD REPORT ---
EXAM DESCRIPTION: RAD - Chest Pa And Lat (2 Views) - 03/31/2023 5:45 pm CLINICAL HISTORY: Direct admission Chest pain. COMPARISON: Chest Pa And Lat (2 Views) dated 09/06/2018; Chest Single View dated 04/19/2018; Chest Sin gle View dated 02/08/2018; CHEST PA AND LAT 2 VIEW dated 05/16/2014 TECHNIQUE: PA and lateral views of the chest were obtained. FINDINGS: The lungs are hyperexpanded compatible with COPD. The heart is upper limit of normal in si ze. No fracture or aggressive bony process. Dual lead pacer device present. IMPRESSION: COPD without acute process identified.
[2023-03-31] MEDS: CEFEPIME 1 GM in NA CHLORIDE 0.9% 100 ML IV ONE (18:16)
[2023-03-31] MEDS: NACHLORIDE 0.45% 1,000 ML IV SCH (18:16)
[2023-03-31 18:44] LABS: Specific Gravity 1.012 (1.005-1.030); Urine Bacteria <20 /HPF (<20); Urine Bilirubin NEGATIVE (Negative); Urine Blood Trace (Negative); Urine Clarity Extremely Turbid (Clear); Urine Color Light-Yellow (Yellow); Urine Crystals Unidentified Few /HPF (None Seen); Urine Glucose NEGATIVE (Negative); Urine Mucus Slight /HPF (None Seen); Urine Protein NEGATIVE (Negative); Urine Urobilinogen Normal (Normal); Urine WBC Clump Rare /HPF (None Seen); Urine pH 6.5 (5.0-7.0)
[2023-03-31 18:56] LABS: Hematocrit 39.7 % (39.6-49.0); MCV 99.5 fL (80-100); Platelets 176 thou/uL (152-406); RBC Red Blood Cell Count 3.99 M/uL (4.33-5.43)
--- NOTE | 2023-03-31 18:57 | RAD REPORT ---
EXAM DESCRIPTION: CT - Foot Left Wo Con - 03/31/2023 6:07 pm CLINICAL HISTORY: INFECTION OF GREAT TOE Pain and swelling COMPARISON: <Comparisons> FINDINGS: Soft tissue swelling about the great toe. No soft tissue gas is present. No evidence of os teomyelitis. Prominent degenerative changes are present first MTP joint. Moderate intertarsal degenerative changes are present. IMPRESSION: No evidence of osteomyelitis is seen. All CT scans are performed using dose optimization technique as appropriate and may include automated exposure control or mA/KV adjustment according to patient size.
--- NOTE | 2023-03-31 19:00 | RAD REPORT ---
EXAM DESCRIPTION: CT - Foot Right Wo Con - 03/31/2023 6:07 pm CLINICAL HISTORY: infection Pain and swelling COMPARISON: <Comparisons> FINDINGS: Moderate atherosclerosis. No soft tissue mass or hematoma. No fracture seen. Soft tissue swelling is present involving the great toe. No soft tissue gas is seen. No evidence of osteomyelitis seen. IMPRESSION: Negative for osteomyelitis. All CT scans are performed using dose optimization technique as appropriate and may include automated exposure control or mA/KV adjustment according to patient size.
[2023-03-31 19:16] LABS: C-Reactive Protein 4.51 mg/L (<3.00); Potassium 3.9 mEq/L (3.5-5.1)
[2023-03-31] MEDS: CEFEPIME 1 GM in NA CHLORIDE 0.9% 100 ML IV SCH (21:00)
[2023-03-31] MEDS: PNEUMOCOCCAL VACCINE 0.5 ML IMVAC ONE (22:00)
[2023-03-31] MEDS: Mupirocin NASAL 2 APPL/1 GM TUBE NAS SCH (22:52)
[2023-04-01 06:37] LABS: Absolute Lymphocytes (CBC) 1.6 K/uL (0.7-4.9); Hematocrit 35.2 % (39.6-49.0); Lymphocytes % 27.1 % (15.3-44.8); MCV 99.6 fL (80-100); MPV 7.4 fL (7.6-11.3); Platelets 184 thou/uL (152-406); RBC Red Blood Cell Count 3.54 M/uL (4.33-5.43)
[2023-04-01 06:40] LABS: Magnesium 1.9 mg/dL (1.6-2.4); Potassium 3.7 mEq/L (3.5-5.1)
[2023-04-01] MEDS: CEFEPIME 1 GM in NA CHLORIDE 0.9% 100 ML IV SCH (07:56)
--- NOTE | 2023-04-01 10:01 | RAD REPORT ---
EXAM DESCRIPTION: RAD - Chest Single View - 04/01/2023 9:47 am CLINICAL HISTORY: PICC placement Verification COMPARISON: Chest Pa And Lat (2 Views) dated 03/31/2023; Chest Pa And Lat (2 Views) dated 09/06/2018; C hest Single View dated 04/19/2018; Chest Single View dated 02/08/2018 FINDINGS: Lines: Pacemaker. Right subclavian approach PICC with tip overlying the mid SVC in satisfa ctory position. Lungs: No evidence of edema or pneumonia. Pleural: No significant pleural effusions or pneumothorax. Cardiac: Mild cardiomegaly. Mediastinum: Within normal limits. Bones: No acute fractures. Other: None IMPRESSION: No acute cardiopulmonary disease. PICC in satisfactory position with tip overlying the S VC.
--- NOTE | 2023-04-01 16:40 | EKG ---
Test Date: 2023-03-31 Test Time: 20:34:14 Cotton Classer: DEMETRIUS MEASUREMENT RESULTS: Intervals: Rate: 86 [place]: QRSD: 126 QT: 374 QTc: 447 [place]: P: [place]: QRS: 85 T: -41 INTERPRETIVE STATEMENTS: Demand pacemaker, interpretation is based on intrinsic rhythm Atrial fibrillation with premature ventricular or aberrantly conducted complexes Right bundle branch block T wave abnormality, consider inferior ischemia or digitalis effect Abnormal ECG Compared to ECG 03/31/2023 20:33:21 No significant changes Electronically Signed On 04-01-23 16:39:31 M[employer]UAL [employer]D MANAGER by Valentin John
[2023-04-01 16:59] VITALS: BP 119/67; TEMP 98.3
[2023-04-01] MEDS ORDERED: METOPROLOL XL 25 MG TAB PO SCH (21:00)
[2023-04-01] MEDS ORDERED: QUETIAPINE 25 MG TAB PO SCH (21:00)
[2023-04-01] MEDS ORDERED: DABIGATRAN 75 MG CAP PO SCH (21:00)
--- NOTE | 2023-04-01 21:32 | P.DS ---
Admission Date: 03/31/23 Discharge Date: 04/01/23 Disposition: DC HOME/HOME HEALTH CARE Discharge Condition: FAIR Hospital Course: RAYMOND HAS GROWN PSEUDOMONAS FROM WOUND. HE IS HERE FOR PICC LINE AND IV CEFEPIME FOR ABOUT 14 DAYS. I ADSIVE HIM TO OFF LOAD THE TOES TOTALLY. Vital Signs/Physical Exam: Temp Pulse Resp BP Pulse Ox 98.3 F 90 14 119/67 98 04/01/23 16:00 04/01/23 16:00 04/01/23 16:00 04/01/23 16:00 04/01/23 16:00 Laboratory Data at Discharge: WBC 5.70 thou/uL (4.3-10.9) 04/01/23 05:30 Hgb 12.1 g/dL (13.6-17.9) L D 04/01/23 05:30 Hct 35.2 % (39.6-49.0) L 04/01/23 05:30 Plt Count 184 thou/uL (152-406) 04/01/23 05:30 Sodium 137 mEq/L (136-145) D 04/01/23 05:30 Potassium 3.7 mEq/L (3.5-5.1) 04/01/23 05:30 BUN 23 mg/dL (7-18) H 04/01/23 05:30 Creatinine 1.11 mg/dL (0.70-1.30) 04/01/23 05:30 Glucose 92 mg/dL (74-106) 04/01/23 05:30 Magnesium 1.9 mg/dL (1.6-2.4) 04/01/23 05:30 Home Medications: Dabigatran Etexilate Mesylate [Pradaxa] 150 mg PO BID 04/19/18 Levothyroxine [Synthroid*] 88 mcg PO DAILY 04/19/18 Polyethylene Glycol 3350 [Miralax] 17 gm PO DAILY 04/19/18 Psyllium Husk (with Sugar) [Metamucil Packet] 3.4 gm PO DAILY 04/19/18 Quetiapine [Seroquel*] 25 mg PO BEDTIME 04/19/18 Metoprolol Succinate 1 tab PO BEDTIME 02/20/23 Silodosin 1 tab PO DAILY 02/20/23 Spironolactone 1 tab PO DAILY 02/20/23 Physician Discharge Instructions: Home IV Antibiotics and Home Health services: [facility]-[address] [place] [address] [address], [place] [address] P/ Tata: [phone] F [facility] Home Health P:[phone] F:[phone] Followup: Wily Pelaez MD [Primary Care Provider] -
[2023-04-02] MEDS ORDERED: LEVOTHYROXINE SOD 0.088 MG TAB PO SCH (06:30)
[2023-04-02] MEDS ORDERED: SPIRONOLACTONE 25 MG TABLET PO SCH (09:00)
[2023-04-02] MEDS ORDERED: SILODOSIN 8 MG PO SCH (09:00)
[2023-04-02] MEDS ORDERED: POLYETHYLENE GLYCOL 119 GM PO SCH (09:00)
[2023-04-02] MEDS ORDERED: PSYLLIUM 1 PKT PO SCH (09:00)
== END 2023-04-01 17:10 | disposition home health service (06) ==
LOC: 2ND 15:32
PROVIDERS: ADMIT Internal Medicine; ATTEND Internal Medicine
PROC: 05HB33Z Insertion of Infusion Device into Right Basilic Vein, Percutaneous Approach (ICD-10-PCS; principal; 2023-04-01)
DX: L03.031 Cellulitis of right toe (principal); B96.5 Pseudomonas (aeruginosa) (mallei) (pseudomallei) as the cause of diseases classified elsewhere; L97.519 Non-pressure chronic ulcer of other part of right foot with unspecified severity; I48.91 Unspecified atrial fibrillation; E03.9 Hypothyroidism, unspecified; I10 Essential (primary) hypertension; Z85.46 Personal history of malignant neoplasm of prostate; Z86.73 Personal history of transient ischemic attack (TIA), and cerebral infarction without residual deficits; Z16.29 Resistance to other single specified antibiotic
CPT/HCPCS: 93005; 87088; 85025 ×2; 81001; 87086; 80048 ×2; 36415 ×2; 83735; 86140; 73700 ×2; 71045; 71046; 73030; 36569; J0692 ×2; G0378; G0379

== ENCOUNTER 2023-04-21 11:20 | Day surgery (SDC) | payer OTHER ==
[2023-04-21 09:09] LABS: Protime INR 1.23
[2023-04-21] MEDS ORDERED: Ringers Lactate 1,000 ML IV ONE (11:36)
[2023-04-21] MEDS ORDERED: LIDOCAINE 2% MPF 5 ML VIAL ONE (11:38)
[2023-04-21] MEDS ORDERED: propofoL 200 MG/20 ML VIAL IV ONE (11:38)
[2023-04-21] MEDS ORDERED: ONDANSETRON 4 MG/2 ML VIAL ONE (11:38)
[2023-04-21] MEDS ORDERED: FENTANYL CITR 100 MCG/2 ML ONE (11:39)
[2023-04-21 12:34] VITALS: O2SAT 100
[2023-04-21] MEDS: CEFAZOLIN SODIUM 1 GM/VIAL ONE (12:40)
[2023-04-21] MEDS: LIDOCAINE HCL/EPINEPHRINE 20 ML MDV ONE (12:52)
--- NOTE | 2023-04-21 13:02 | P.OP ---
Preoperative diagnosis: Central Top Scalp Skin Lesion Postoperative diagnosis: Central Top Scalp Skin Lesion Primary procedure: Wide Local Excision of Central Top Scalp Skin Lesion Anesthesia: MAC + Local Estimated blood loss: <2cc Specimen: Scalp Skin Lesion Findings: ~ 0.9cm Central Top Scalp Skin Lesion Complications: None Transferred to: Recovery Room Condition: Good
--- NOTE | 2023-04-21 13:33 | OP ---
Date of Procedure: 04/21/2023 Surgeon: Melo Quezada MD, Preoperative Diagnosis: Central top scalp skin lesion. Postoperative Diagnosis: Central top scalp skin lesion. Procedure Performed: Wide local excision of central top scalp skin lesion. Anesthesia: MAC plus local with 1% lidocaine with epinephrine. Estimated Blood Loss: 2 cc. Specimen: Scalp skin lesion. Findings: 0.9 cm central top scalp skin lesion which is non-hyperpigmented, but hyperemic with raise d edges, well-circumscribed noted. Complications: None. Disposition: Patient transferred to recovery room in good condition. Procedure In Detail: After informed consent was obtained, the patient was brought to the operating r oom, prepped and draped in the usual sterile fashion. After adequate anesthesia was achieved, I inje cted additional local anesthetic into the scalp lesion at the center of the top portion of the scalp. I then had previously marked the patient using approximately 1 cm margin circumferentially around a 0.9 cm central scalp lesion in an elliptical fashion. I then dissected down through the subcutaneou s tissues using a 15 blade circumferentially around. I then used electrocautery to remove an ellipse of skin, sent off for pathologic examination. Hemostasis was achieved with electrocautery. At this point, I then undermined the lateral aspects. This only extended to the subcutaneous fat and not in to the galea. At this point, circumferential area was cleansed once again and closed with interrupte d 3-0 Prolene suture in an interrupted fashion with good approximation of tissues and good hemostasis . A sterile dressing of Xeroform and gauze were placed on top. The patient tolerated the procedure without incident or complication, transferred to PACU in good condition. All counts were correct at the end of the case. TK/MODL Voice ID: [id number] Report ID: [id number]
[2023-04-21 14:13] VITALS: BP 122/71; TEMP 97
== END 2023-04-21 13:55 | disposition home or self-care (01) ==
LOC: OR 11:20
PROVIDERS: ATTEND Surgery
PROC: 0HB0XZZ Excision of Scalp Skin, External Approach (ICD-10-PCS; principal; 2023-04-21 13:30)
DX: C44.42 Squamous cell carcinoma of skin of scalp and neck (principal); I10 Essential (primary) hypertension; I48.91 Unspecified atrial fibrillation; Z95.0 Presence of cardiac pacemaker
CPT/HCPCS: 36415; 85610; 88304; 85730; 11621; J2704; J2001; J3010; J2405; J7120; J0690; 88305

== ENCOUNTER 2023-08-10 16:10 | Inpatient (IN) | payer OTHER ==
[2023-08-10] MEDS ORDERED: ACETAMINOPHEN 325 MG TABLET PO PRN (17:37)
[2023-08-10] MEDS ORDERED: DIPHENHYDRAMINE 25 MG TAB/CAP PO PRN (17:38)
[2023-08-10] MEDS ORDERED: ONDANSETRON 4 MG/2 ML VIAL IV PRN (17:39)
[2023-08-10] MEDS ORDERED: LOPERAMIDE HCL 2 MG CAPSULE PO PRN (17:39)
[2023-08-10] MEDS ORDERED: POLYETHYL GLY 3350 17 GM/DOSE PO PRN (17:41)
[2023-08-10 17:52] VITALS: BMI 21.9
[2023-08-10] MEDS ORDERED: PSYLLIUM 1 PKT PO PRN (17:53)
[2023-08-10 18:18] LABS: Absolute Lymphocytes (CBC) 0.7 K/uL (0.7-4.9); Absolute Monocytes 0.7 K/uL (0.1-1.3); Absolute Neutrophil 3.6 K/uL (1.8-8.0); Basophils % 0.5 % (0-1.3); Eosinophils % 0.5 % (0-4.4); Hematocrit 47.3 % (39.6-49.0); Hemoglobin 15.9 g/dL (13.6-17.9); Lymphocytes % 14.5 % (15.3-44.8); MCH 32.2 pg (27.0-35.0); MCHC 33.5 g/dL (32.0-36.0); MCV 96.2 fL (80-100); MPV 7.3 fL (7.6-11.3); Neutrophils % 70.5 % (41.7-73.7); Nucleated Red Blood Cells % 0.2 % (0-0); Platelets 132 thou/uL (152-406); RBC Red Blood Cell Count 4.92 M/uL (4.33-5.43); Red Cell Distribution Width 16.4 % (12.1-15.2)
[2023-08-10 18:25] LABS: PT Prothrombin Time 17.6 SECONDS (9.5-12.5); PTT, Activated Partial Thromb 67.1 SECONDS (24.3-36.9); Protime INR 1.62
[2023-08-10 18:57] LABS: Albumin 3.6 g/dL (3.4-5.0); Albumin/Globulin Ratio 1.1 (1.1-1.8); Bilirubin Direct 0.5 mg/dL (0-0.2); Bilirubin Indirect, Calculated 0.5 mg/dL (0.2-0.8); Globulin 3.3 g/dL (2.3-3.5); Phosphorus 3.2 mg/dL (2.5-4.9); Protein, Total 6.9 g/dL (6.4-8.2); Thyroid Stimulating Hormone 2.22 uIU/mL (0.358-3.740)
[2023-08-10 19:08] LABS: Anion Gap 13.6 mEq/L (5.0-15.0); Magnesium 2.2 mg/dL (1.6-2.4); Potassium 4.6 mEq/L (3.5-5.1)
[2023-08-10] MEDS: NACHLORIDE 0.45% 1,000 ML IV SCH (19:36)
[2023-08-10 20:36] LABS: Anisocytosis 1+; Blood Morphology Comment NOTED (NOT SEEN); Differential Total Cells Count 100; Eosinophils 1 % (0-3); Lymphocytes 10 % (15-42); Monocytes 16 % (0-10); Platelet Estimate DECR; Poikilocytosis 1+; Segmented Neutrophils 73 % (40-80)
[2023-08-10] MEDS: Meropenem 1,000 MG in NA CHLORIDE 0.9% 100 ML IV SCH (20:45)
[2023-08-10] MEDS: SPIRONOLACTONE 25 MG TABLET PO SCH (20:45)
[2023-08-10] MEDS: DABIGATRAN 75 MG CAP PO SCH (20:46)
[2023-08-10] MEDS: Mupirocin NASAL 2 APPL/1 GM TUBE NAS SCH (20:46)
[2023-08-10] MEDS: QUETIAPINE 25 MG TAB PO SCH (20:46)
[2023-08-10] MEDS: METOPROLOL XL 25 MG TAB PO SCH (20:46)
[2023-08-10] MEDS ORDERED: DABIGATRAN ETEXILATE MESYLATE 150 MG PO SCH (21:00)
[2023-08-10] MEDS ORDERED: HOME MED 1 EA UNK (Spironolactone [Spironolactone] 50 MG Tablet) PO SCH (21:00)
--- NOTE | 2023-08-10 21:56 | RAD REPORT ---
EXAM DESCRIPTION: Khushit Single View08/10/2023 9:29 pm CLINICAL HISTORY: PICC placement COMPARISON: Chest Single View dated 04/01/2023; Chest Pa And Lat (2 Views) dated 03/31/2023; Chest Pa An d Lat (2 Views) dated 09/06/2018; Chest Single View dated 04/19/2018 TECHNIQUE: Portable AP view of the chest. FINDINGS: Right arm PICC in place. Catheter tip projects over the distal SVC. Left chest wall pacer unchanged in position. The lungs are clear. No pneumothorax or effusion. The cardiomediastinal conto urs are unremarkable. IMPRESSION: Right arm PICC as above. No acute cardiopulmonary process
--- NOTE | 2023-08-11 00:27 | RAD REPORT ---
EXAM DESCRIPTION: CT - Foot Right Wo Con - 08/10/2023 9:29 pm CLINICAL HISTORY: Right Great Toe Cellulitis COMPARISON: Foot Right Wo Con dated 03/31/2023; Foot Right 3 View dated 08/03/2023 TECHNIQUE: Thin cut axial CT imaging of the right foot was performed without IV contrast. Multiplana r reformats were generated and reviewed. All CT scans are performed using dose optimization technique as appropriate and may include automated exposure control or mA/KV adjustment according to patient size. FINDINGS: No osseous destructive changes to suggest acute osteomyelitis. No acute fractures. Moderate soft tissue swelling about the great toe, and the ankle especially laterally. Milder soft ti ssue swelling along the dorsum and lateral mid to forefoot. Advanced degenerative changes of the midfoot articulations. Moderate calcaneal spur. No appreciable fluid collections within limits of noncontrast evaluation. Vascular calcifications. IMPRESSION: No evidence of osteomyelitis. Stable findings as above.
[2023-08-11] MEDS: LEVOTHYROXINE SOD 0.088 MG TAB PO SCH (06:01)
[2023-08-11 06:10] LABS: Absolute Lymphocytes (CBC) 1.1 K/uL (0.7-4.9); Absolute Monocytes 0.9 K/uL (0.1-1.3); Absolute Neutrophil 3.1 K/uL (1.8-8.0); Basophils % 0.9 % (0-1.3); Eosinophils % 0.6 % (0-4.4); Hematocrit 41.2 % (39.6-49.0); Hemoglobin 14.2 g/dL (13.6-17.9); MCH 32.7 pg (27.0-35.0); MCHC 34.4 g/dL (32.0-36.0); MPV 7.3 fL (7.6-11.3); Monocytes % 16.6 % (3.3-12.3); Neutrophils % 60.9 % (41.7-73.7); Nucleated Red Blood Cells % 0.1 % (0-0); Platelets 137 thou/uL (152-406); RBC Red Blood Cell Count 4.34 M/uL (4.33-5.43); Red Cell Distribution Width 15.9 % (12.1-15.2)
[2023-08-11 06:13] LABS: Renal Epithelial <5 /HPF (None Seen); Specific Gravity 1.008 (1.005-1.030); Sqamous Epithelial <5 /HPF (None Seen); Urine Bacteria None Seen /HPF (<20); Urine Bilirubin NEGATIVE (Negative); Urine Blood Negative (Negative); Urine Clarity Clear (Clear); Urine Color Light-Yellow (Yellow); Urine Culture Reflex Order REFLEXED; Urine Glucose NEGATIVE (Negative); Urine Ketones NEGATIVE (Negative); Urine Microscopic Reflex YN ORDER UMIC; Urine Nitrite NEGATIVE (Negative); Urine Protein NEGATIVE (Negative); Urine RBC None Seen /HPF (None Seen); Urine Urobilinogen Normal (Normal); Urine WBC Clump Rare /HPF (None Seen); Urine pH 5.5 (5.0-7.0)
[2023-08-11 06:24] LABS: Anion Gap 11.4 mEq/L (5.0-15.0); Potassium 4.4 mEq/L (3.5-5.1)
[2023-08-11 08:09] LABS: Atypical Lymphocytes 2 %; Band Neutrophils 1 % (0-1); Differential Total Cells Count 100; Lymphocytes 25 % (15-42); Monocytes 13 % (0-10); Platelet Estimate ADEQ; Segmented Neutrophils 56 % (40-80)
[2023-08-11 08:10] LABS: Blood Morphology Comment NOT SEEN (NOT SEEN)
[2023-08-11] MEDS: SILODOSIN 8 MG PO SCH (09:00)
[2023-08-11] MEDS ORDERED: POLYETHYLENE GLYCOL 119 GM PO SCH (09:00)
[2023-08-11] MEDS: POLYETHYL GLY 3350 17 GM/DOSE PO SCH (09:21)
--- NOTE | 2023-08-11 16:12 | P.PN ---
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 Last time he was totally cured after two weeks of Merrem. Second time Cipro worked orally, third time CIpro failed and he is in hospital. I did culture again after the cap of callus came off and there was pus beneath. He had cellulitis of the whole foot. With Merrem two dose he feels significantly better. 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 He puts pressure on the medial end of the toe and develops callus. This is where the infection recurs. ) Neurological: Normal speech, Normal tone, Normal affect Lymphatics: No axilla or inguinal lymphadenopathy - Studies Laboratory Data (last 24 hrs) 08/11/23 08/11/23 08/10/23 05:50 05:50 17:55 WBC 5.20 Hgb 14.2 D Hct 41.2 Plt Count 137 L PT INR APTT Sodium 126 L D Potassium 4.4 BUN 33 H Creatinine 1.06 Glucose 92 Phosphorus 3.2 Magnesium Total Bilirubin 1.0 AST 31 ALT 33 Alkaline Phosphatase 96 08/10/23 08/10/23 08/10/23 17:55 17:55 17:55 WBC 5.20 Hgb 15.9 Hct 47.3 Plt Count 132 L PT 17.6 H INR 1.62 APTT 67.1 H Sodium 122 L Potassium 4.6 BUN 37 H Creatinine 1.27 Glucose 96 Phosphorus Magnesium 2.2 Total Bilirubin AST ALT Alkaline Phosphatase Microbiology Data (last 24 hrs): 08/10/23 15:00 Wound - Toe Gram Stain - Final Medications List Reviewed: Yes Assessment And Plan - Current Problems (Diagnosis) (1) Cellulitis of foot, right Current Visit: No Status: Acute Plan: 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 We are trying to save his toe but he has to walk so he has recurrent infection. CT shows no om. COntinue Merrem for two weeks. I tried to off load his area by using special shoes but it is still not working.
[2023-08-12 01:08] VITALS: O2SAT 100
--- NOTE | 2023-08-12 17:48 | P.PN ---
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 Last time he was totally cured after two weeks of Merrem. Second time Cipro worked orally, third time CIpro failed and he is in hospital. I did culture again after the cap of callus came off and there was pus beneath. He had cellulitis of the whole foot. With Merrem two dose he feels significantly better. lot better waiting for iv abx. He needs 14 days of MErrem at home. orders written. Review of Systems 10-point ROS is otherwise unremarkable Physical Examination - Vital Signs Temperature: 96.9 F Blood Pressure: 116/73 Pulse: 93 Respirations: 16 Pulse Ox (%): 99 - Physical Exam General: Alert, In no apparent distress HEENT: Atraumatic, PERRLA, EOMI Neck: Supple, JVD not distended Respiratory: Clear to auscultation bilaterally, Normal air movement Cardiovascular: Regular rate/rhythm, Normal S1 S2 Gastrointestinal: Normal bowel sounds, No tenderness Musculoskeletal: No tenderness Integumentary: No rashes Neurological: Normal speech, Normal tone, Normal affect Lymphatics: No axilla or inguinal lymphadenopathy - Studies Microbiology Data (last 24 hrs): 08/10/23 15:00 Wound - Toe Gram Stain - Final Medications List Reviewed: Yes Assessment And Plan - Current Problems (Diagnosis) (1) Cellulitis of foot, right Current Visit: No Status: Acute Plan: 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 We are trying to save his toe but he has to walk so he has recurrent infection. CT shows no om. COntinue Merrem for two weeks. I tried to off load his area by using special shoes but it is still not working. improved waiting for home iv abx culture neg but it was doing after being on CIPRO.
[2023-08-13 05:30] VITALS: TEMP 97.1
[2023-08-13 09:10] LABS: Absolute Lymphocytes (CBC) 0.9 K/uL (0.7-4.9); Absolute Monocytes 0.4 K/uL (0.1-1.3); Absolute Neutrophil 2.8 K/uL (1.8-8.0); Basophils % 0.9 % (0-1.3); Eosinophils % 1.1 % (0-4.4); Hematocrit 45.5 % (39.6-49.0); Hemoglobin 15.1 g/dL (13.6-17.9); Lymphocytes % 21.5 % (15.3-44.8); MCH 32.3 pg (27.0-35.0); MCHC 33.2 g/dL (32.0-36.0); MCV 97.1 fL (80-100); MPV 7.1 fL (7.6-11.3); Monocytes % 8.6 % (3.3-12.3); Neutrophils % 67.9 % (41.7-73.7); Platelets 138 thou/uL (152-406); RBC Red Blood Cell Count 4.69 M/uL (4.33-5.43); Red Cell Distribution Width 16.7 % (12.1-15.2)
[2023-08-13 09:26] LABS: Anion Gap 9.3 mEq/L (5.0-15.0); Potassium 4.3 mEq/L (3.5-5.1)
[2023-08-13 10:12] VITALS: BP 128/70
--- NOTE | 2023-08-13 21:54 | P.DS ---
Admission Date: 08/12/23 Discharge Date: 08/13/23 Disposition: DC HOME/HOME HEALTH CARE Discharge Condition: FAIR Reason for Admission: Lot better already - Problems (1) Cellulitis of foot, right Status: Acute Hospital Course: RAYMOND IS STABLE. DOING LOT BETTER ON MERRREM. CELLULITIS IS CLEARED AND THE ULCER WITH CALLUS HAS HEALED. HE HAS NO OM. HE NEEDS TO CONT ABX FOR 10 DAYS AT LEAST. FU IN OFFICE ONE WEEK. OFF LOADING Vital Signs/Physical Exam: Temp Pulse Resp BP Pulse Ox 97.1 F 83 15 128/70 97 08/13/23 08:00 08/13/23 08:00 08/13/23 08:00 08/13/23 08:00 08/13/23 08:00 Laboratory Data at Discharge: WBC 4.10 thou/uL (4.3-10.9) L 08/13/23 09:00 Hgb 15.1 g/dL (13.6-17.9) 08/13/23 09:00 Hct 45.5 % (39.6-49.0) 08/13/23 09:00 Plt Count 138 thou/uL (152-406) L 08/13/23 09:00 PT 17.6 SECONDS (9.5-12.5) H 08/10/23 17:55 INR 1.62 08/10/23 17:55 APTT 67.1 SECONDS (24.3-36.9) H 08/10/23 17:55 Sodium 126 mEq/L (136-145) L 08/13/23 09:00 Potassium 4.3 mEq/L (3.5-5.1) 08/13/23 09:00 BUN 29 mg/dL (7-18) H 08/13/23 09:00 Creatinine 1.07 mg/dL (0.70-1.30) 08/13/23 09:00 Glucose 178 mg/dL (74-106) H 08/13/23 09:00 Phosphorus 3.2 mg/dL (2.5-4.9) 08/10/23 17:55 Magnesium 2.2 mg/dL (1.6-2.4) 08/10/23 17:55 Total Bilirubin 1.0 mg/dL (0.2-1.0) 08/10/23 17:55 AST 31 U/L (15-37) 08/10/23 17:55 ALT 33 U/L (16-61) 08/10/23 17:55 Alkaline Phosphatase 96 U/L (45-117) 08/10/23 17:55 Home Medications: Dabigatran Etexilate Mesylate [Pradaxa] 150 mg PO BID 04/19/18 Levothyroxine [Synthroid*] 88 mcg PO DAILY 04/19/18 Polyethylene Glycol 3350 [Miralax] 17 gm PO DAILY 04/19/18 Psyllium Husk (with Sugar) [Metamucil Packet] 3.4 gm PO DAILYPRN PRN 04/19/18 Quetiapine [Seroquel*] 25 mg PO BEDTIME 04/19/18 Metoprolol Succinate 1 tab PO BEDTIME 02/20/23 Silodosin 1 tab PO DAILY 02/20/23 Physician Discharge Instructions: Home Health established: [facility] Home Health P:[phone] F:[phone] Home IV antibiotics: [address], [place] [address] P [phone] F
[2023-08-15 04:02] LABS: 1,25 Dihydroxy Vitamin D3 24 pg/mL; Vitamin D 1,25-Dihydroxy Total 24 pg/mL (18-72); Vitamin D,1,25-OH2, D2 <8 pg/mL
== END 2023-08-13 12:06 | disposition home health service (06) | DRG 603 ==
LOC: 4TH 16:10 → OBSVTOIN 08-12 11:46
PROVIDERS: ADMIT Internal Medicine; ATTEND Internal Medicine
PROC: 02HV33Z Insertion of Infusion Device into Superior Vena Cava, Percutaneous Approach (ICD-10-PCS; principal; 2023-08-10)
DX: L03.115 Cellulitis of right lower limb (principal); I48.91 Unspecified atrial fibrillation; E03.9 Hypothyroidism, unspecified; I10 Essential (primary) hypertension; Z85.46 Personal history of malignant neoplasm of prostate; Z86.73 Personal history of transient ischemic attack (TIA), and cerebral infarction without residual deficits; Z79.890 Hormone replacement therapy; Z79.899 Other long term (current) drug therapy
CPT/HCPCS: 36415; 36569; 71045; 73700; 80048; 80076; 81001; 82607; 82652; 83735; 84100; 84443; 85025; 85610; 85730; 87040; 87070; 87086; 87088; 87205; G0378; G0379; J2185